=== PATIENT | male | born 1935 | race Caucasian/White ===

== ENCOUNTER → 2017-02-05 | Outpatient (REF) | payer MEDICARE | LOC: M LAB REF 16:30 | PROVIDERS: ATTEND Internal Medicine | DX: M10.072 Idiopathic gout, left ankle and foot (principal); N25.81 Secondary hyperparathyroidism of renal origin ==

== ENCOUNTER → 2017-06-25 | Outpatient (REF) | payer MEDICARE | LOC: M LAB REF 17:34 | PROVIDERS: ATTEND Internal Medicine | DX: N25.81 Secondary hyperparathyroidism of renal origin (principal) ==

== ENCOUNTER → 2017-07-23 | Outpatient (REF) | payer MEDICARE | LOC: M LAB REF 12:29 | PROVIDERS: ATTEND Internal Medicine | DX: N25.81 Secondary hyperparathyroidism of renal origin (principal) ==

== ENCOUNTER → 2017-11-02 | Outpatient (REF) | payer MEDICARE ==
[2017-11-02 18:30] LABS: PTH INTACT 54.1 PG/ML (14.0-72.0)
== END ==
LOC: M LAB REF 16:08
DX: N25.81 Secondary hyperparathyroidism of renal origin (principal)
CPT/HCPCS: 83970

== ENCOUNTER → 2018-03-04 | Outpatient (REF) | payer MEDICARE ==
[2018-03-04 18:11] LABS: PTH INTACT 45.8 PG/ML (18.5-88.0)
== END ==
LOC: M LAB REF 17:22
DX: N25.81 Secondary hyperparathyroidism of renal origin (principal)
CPT/HCPCS: 83970

== ENCOUNTER → 2019-09-29 | Outpatient (REF) | payer MEDICARE | LOC: M LAB REF 12:43 | PROVIDERS: ATTEND Internal Medicine | DX: N25.81 Secondary hyperparathyroidism of renal origin (principal) ==

== ENCOUNTER → 2020-04-05 | Outpatient (REF) | payer MEDICARE | LOC: M LAB REF 17:55 | PROVIDERS: ATTEND Internal Medicine | DX: N25.81 Secondary hyperparathyroidism of renal origin (principal) ==

== ENCOUNTER → 2020-10-05 | Outpatient (REF) | payer MEDICARE | LOC: M LAB REF 16:13 | PROVIDERS: ATTEND Internal Medicine | DX: N25.81 Secondary hyperparathyroidism of renal origin (principal) ==

== ENCOUNTER → 2021-04-15 | Outpatient (REF) | payer MEDICARE | LOC: M LAB REF 16:20 | PROVIDERS: ATTEND Internal Medicine | DX: N25.81 Secondary hyperparathyroidism of renal origin (principal) ==

== ENCOUNTER → 2021-10-04 | Outpatient (REF) | payer MEDICARE ==
[2021-10-04 17:43] LABS: URIC ACID 4.3 MG/DL (3.5-7.2)
[2021-10-04 17:56] LABS: PTH INTACT 32.9 PG/ML (18.5-88.0)
== END ==
LOC: M LAB REF 16:21
PROVIDERS: ATTEND Internal Medicine
DX: N18.4 Chronic kidney disease, stage 4 (severe) (principal)

== ENCOUNTER → 2021-10-19 | Outpatient (CLI) | payer MEDICARE ==
--- NOTE | 2021-10-19 13:08 | REP ---
INDICATION: CKD, STAGE 4 COMPARISON: None TECHNIQUE: Real time jacobs scale ultrasound examination using curved array transducer. FINDINGS: Right kidney measures 8.0 x 3.5 x 4.5 cm and demonstrates increased central sinus fat along with renovascular calcifications and few cysts including 1.8 cm complex upper pole cyst, and two 2.5 cm simple lower pole cysts. No hydronephrosis, nephrolithiasis or perinephric stranding. Left kidney measures 11.6 x 5.6 x 5.2 cm and demonstrates increased central sinus fat along with renovascular calcifications and few cysts including 2.5 cm upper pole cyst, 4.3 cm and 2.1 cm lower pole cysts. No hydronephrosis, nephrolithiasis, or perinephric stranding. The bladder is normal in appearance and bilateral ureteral jets are identified. IMPRESSION: 1. Asymmetric atrophic appearance to the right kidney along with bilateral simple and complex cysts. No hydronephrosis. <Electronically signed by Zhou Fuentes > 10/19/21 [id number]
== END ==
LOC: M RAD 11:27
PROVIDERS: ATTEND Internal Medicine
DX: N18.9 Chronic kidney disease, unspecified (principal)

== ENCOUNTER → 2022-01-11 | Outpatient (REF) | payer MEDICARE ==
[2022-01-11 12:44] LABS: URIC ACID 4.7 MG/DL (3.5-7.2)
[2022-01-11 12:57] LABS: PTH INTACT 24.3 PG/ML (18.5-88.0)
== END ==
LOC: M LAB REF 12:08
PROVIDERS: ATTEND Internal Medicine
DX: N18.4 Chronic kidney disease, stage 4 (severe) (principal)

== ENCOUNTER → 2022-03-07 | Outpatient (REF) | payer MEDICARE ==
[2022-03-07 10:02] LABS: INR 4.27; PROTHROMBIN TIME 41.2 SECONDS (12.7-14.5)
== END ==
LOC: M LAB REF 09:35
PROVIDERS: ATTEND Nurse Practitioner Adult Health
DX: Z79.01 Long term (current) use of anticoagulants (principal)

== ENCOUNTER → 2022-04-21 | Outpatient (REF) | payer MEDICARE ==
[2022-04-21 13:55] LABS: PHOSPHORUS LEVEL 3.4 MG/DL (2.5-4.9); URIC ACID 4.3 MG/DL (3.5-7.2)
[2022-04-21 14:02] LABS: PTH INTACT 21.8 PG/ML (18.5-88.0)
== END ==
LOC: M LAB REF 12:37
PROVIDERS: ATTEND Internal Medicine
DX: M10.9 Gout, unspecified (principal); I48.21 Permanent atrial fibrillation; N18.5 Chronic kidney disease, stage 5

== ENCOUNTER → 2022-05-17 | Outpatient (REF) | payer MEDICARE ==
[2022-05-17 19:53] LABS: HEPATITIS B CORE ANTIBODY IGM NEGATIVE (NEGATIVE); HEPATITIS B SURFACE ANTIBODY NEGATIVE (POSITIVE); HEPATITIS B SURFACE ANTIGEN NEGATIVE (NEGATIVE); HEPATITIS C VIRUS ABY INDEX 0.1 INDEX (<0.8)
== END ==
LOC: M LAB REF 16:40
PROVIDERS: ATTEND Internal Medicine Nephrology
DX: N18.6 End stage renal disease (principal)

== ENCOUNTER → 2022-06-04 | Outpatient (CLI) | payer MEDICARE | LOC: M LABSMTC 10:43 | PROVIDERS: ATTEND Anesthesiology | DX: Z20.828 Contact with and (suspected) exposure to other viral communicable diseases (principal); Z11.59 Encounter for screening for other viral diseases ==

== ENCOUNTER → 2022-06-08 | Outpatient (CLI) | payer MEDICARE ==
[~2022-06-08] MED LIST: LIDOCAINE 1% MDV 20ML VIAL As Ordered ONE; MIDAZOLAM INJ 2MG/2ML VIAL (J2250 PER 1MG) As Ordered ONE; NS 1,000 ML IV SCH; ceFAZolin 2 GM/D5W 50 ML IV BAG (J0690 PER 500MG) As Ordered ONE; ceFAZolin SOD 2 GM in IV 1 EA IV ONE; diphenhydrAMINE 50MG/ML VIAL (J1200) As Ordered ONE; fentaNYL 100 MCG/2 ML INJECTION As Ordered ONE
[2022-06-08 13:45] VITALS: BP 169/77
== END ==
LOC: M IRPRO 10:46
PROVIDERS: ATTEND Radiology Diagnostic Radiology
DX: N19 Unspecified kidney failure (principal)
CPT/HCPCS: 36558; 99152; 99153; C1750; C1769; C1894; J0690; J1644; J2250; J3010

== ENCOUNTER → 2022-08-24 | Outpatient (REF) | payer MEDICARE ==
[2022-08-24 14:37] LABS: URIC ACID 1.9 MG/DL (3.5-7.2)
[2022-08-24 15:22] LABS: PTH INTACT 112.9 PG/ML (18.5-88.0)
== END ==
LOC: M LAB REF 12:12
PROVIDERS: ATTEND Internal Medicine
DX: I48.21 Permanent atrial fibrillation (principal); N18.5 Chronic kidney disease, stage 5; M10.9 Gout, unspecified

== ENCOUNTER → 2022-09-18 | Outpatient (REF) | payer MEDICARE | LOC: M LAB REF 09:14 | PROVIDERS: ATTEND Surgery | DX: L72.0 Epidermal cyst (principal) ==

== ENCOUNTER → 2022-10-05 | Outpatient (CLI) | payer MEDICARE | LOC: M ONCR 08:53 | PROVIDERS: ATTEND General Practice | DX: C44.229 Squamous cell carcinoma of skin of left ear and external auricular canal (principal); I48.0 Paroxysmal atrial fibrillation; N18.6 End stage renal disease; Z87.891 Personal history of nicotine dependence; Z99.2 Dependence on renal dialysis ==

== ENCOUNTER → 2022-10-19 | Outpatient (CLI) | payer MEDICARE ==
[~2022-10-19] MED LIST changes: +ALLO100T PO; +ASPI81TA26 PO; +ATOR1TAB21 PO; +FLOM0.4C39 PO; +FURO40TA2 PO; -LIDOCAINE 1% MDV 20ML VIAL As Ordered ONE; +METO1TAB32 PO; -MIDAZOLAM INJ 2MG/2ML VIAL (J2250 PER 1MG) As Ordered ONE; -NS 1,000 ML IV SCH; +PANT40TA29 PO; +SPIR-10 PO; +WARF-18 PO; +WARF-23 PO; -ceFAZolin 2 GM/D5W 50 ML IV BAG (J0690 PER 500MG) As Ordered ONE; -ceFAZolin SOD 2 GM in IV 1 EA IV ONE; -diphenhydrAMINE 50MG/ML VIAL (J1200) As Ordered ONE; -fentaNYL 100 MCG/2 ML INJECTION As Ordered ONE
[2022-10-19 12:46] LABS: INR 2.34
== END ==
LOC: M WUC 10:00
PROVIDERS: ATTEND Internal Medicine
DX: Z01.810 Encounter for preprocedural cardiovascular examination (principal); C44.209 Unspecified malignant neoplasm of skin of left ear and external auricular canal; Z95.9 Presence of cardiac and vascular implant and graft, unspecified

== ENCOUNTER → 2022-10-24 | Outpatient (CLI) | payer MEDICARE | LOC: M LABSMTC 09:25 | PROVIDERS: ATTEND Anesthesiology | DX: Z01.818 Encounter for other preprocedural examination (principal) ==

== ENCOUNTER 2022-10-26 06:48 | Day surgery (SDC) | payer MEDICARE ==
[~2022-10-26] VITALS: Ht 172.7 cm; Wt 89.7 kg
[~2022-10-26 06:48] MED LIST changes: +ceFAZolin SOD 2 GM in IV 1 EA IV ONE
[2022-10-26] MEDS ORDERED: LR 1,000 ML IV SCH ×2 (07:15→11:55)
[2022-10-26] MEDS ORDERED: BACITRACIN OINTMENT 30GM TUBE As Ordered ONE (08:31)
[2022-10-26] MEDS ORDERED: LIDOCAINE 2% W/EPINEPHRINE 20ML VIAL **PRES FREE As Ordered ONE (08:31)
[2022-10-26] MEDS ORDERED: EPINEPHrine INJ 1 MG/ML 1ML AMP As Ordered ONE (08:31)
[2022-10-26] MEDS ORDERED: MIDAZOLAM INJ 2MG/2ML VIAL (J2250 PER 1MG) As Ordered ONE (08:43)
[2022-10-26] MEDS ORDERED: fentaNYL 100 MCG/2 ML INJECTION As Ordered ONE (08:43)
[2022-10-26] MEDS ORDERED: propofoL 200 MG/20 ML VIAL As Ordered ONE (08:43)
[2022-10-26] MEDS ORDERED: ONDANSETRON 4MG 2ML VIAL As Ordered ONE (08:43)
[2022-10-26] MEDS ORDERED: LIDOCAINE 2% INJ 100 MG/5 ML SYRINGE As Ordered ONE (08:43)
[2022-10-26] MEDS ORDERED: NS 1,000 ML IV SCH ×2 (08:50→08:55)
[2022-10-26 09:22] LABS: INR 1.1; PROTHROMBIN TIME 14.4 SECONDS (12.5-14.5)
[2022-10-26] MEDS ORDERED: POVIDONE-IODINE 5% OPHTH PREP SOL 30ML As Ordered ONE (09:38)
[2022-10-26] MEDS ORDERED: ePHEDrine SULFATE 25 MG/5 ML(5MG/ML) SYRINGE As Ordered ONE ×3 (09:55→11:48)
[2022-10-26] MEDS ORDERED: GLYCOPYRROLATE INJ 0.2 MG/ML 2 ML VIAL As Ordered ONE (09:55)
[2022-10-26] MEDS ORDERED: ACETAMINOPHEN 1000MG 100ML IV BAG As Ordered ONE (10:35)
[2022-10-26] MEDS ORDERED: GENTAMICIN SULF 80MG/2ML VIAL As Ordered ONE (10:56)
[2022-10-26] MEDS ORDERED: PHENYLephrine 500MCG 5ML (100MCG/ML) SYRINGE As Ordered ONE (11:45)
[2022-10-26] MEDS ORDERED: fentaNYL 100 MCG/2 ML INJECTION IV PRN (11:55)
[2022-10-26] MEDS ORDERED: MORPHINE 2 MG/ML 1ML VIAL IV PRN (11:55)
[2022-10-26] MEDS ORDERED: ONDANSETRON 4MG 2ML VIAL IV PRN (11:55)
[2022-10-26] MEDS ORDERED: oxyCODONE 5MG TAB PO PRN (11:55)
[2022-10-26 15:31] VITALS: BP 112/59
== END 2022-10-26 15:49 | disposition home or self-care (01) ==
LOC: M SDC 06:48
PROVIDERS: ATTEND Plastic Surgery Surgery of the Hand
DX: C44.229 Squamous cell carcinoma of skin of left ear and external auricular canal (principal); I48.91 Unspecified atrial fibrillation; Z79.01 Long term (current) use of anticoagulants; Z79.899 Other long term (current) drug therapy; I10 Essential (primary) hypertension; Z87.891 Personal history of nicotine dependence; I25.10 Atherosclerotic heart disease of native coronary artery without angina pectoris; I25.2 Old myocardial infarction; M10.9 Gout, unspecified; Z79.82 Long term (current) use of aspirin; N40.0 Benign prostatic hyperplasia without lower urinary tract symptoms
CPT/HCPCS: 11644; 15240; 36415; 84132; 85610; 88305; 88331; 88332; J0131; J0171; J0690; J1100; J1580; J2250; J2370; J2405; J3010

== ENCOUNTER 2023-01-17 09:11 | Inpatient (IN) | payer MEDICARE ==
[~2023-01-17] VITALS: Ht 172.7 cm; Wt 81.3 kg
[~2023-01-17 09:11] MED LIST changes: -ceFAZolin SOD 2 GM in IV 1 EA IV ONE
[2023-01-17 10:21] LABS: BASO % 0.2 % (0.0-1.0); HEMATOCRIT 39.2 % (42.0-52.0); HEMOGLOBIN 12.7 g/dl (13.5-17.5); LYMPH # 0.3 10^3/uL (1.5-5.0); LYMPH % 1.3 % (24.0-44.0); MEAN CORPUSCULAR HEMOGLOBIN 34.1 pg (27.0-33.0); MEAN CORPUSCULAR HGB CONC 32.4 g/dl (32.0-36.5); MEAN CORPUSCULAR VOLUME 105.4 fl (80.0-96.0); MONO # 0.8 10^3/uL (0.0-0.8); MONO % 3.4 % (2.0-8.0); NEUTROPHILS # 20.8 10^3/uL (1.5-8.5); NEUTROPHILS % 93.1 % (36.0-66.0); PLATELET COUNT, AUTOMATED 151 10^3/uL (150-450); RED BLOOD COUNT 3.72 10^6/uL (4.30-6.10); WHITE BLOOD COUNT 22.3 10^3/uL (4.0-10.0)
[2023-01-17 10:43] LABS: CK-MB VALUE MASS < 1.0 NG/ML (<3.6)
[2023-01-17 10:46] LABS: ALBUMIN 3.6 G/DL (3.2-5.2); ALKALINE PHOSPHATASE 98 U/L (46-116); ALT/SGPT 32 U/L (7.0-40); AST/SGOT 29 U/L (<34); BILIRUBIN,DIRECT 0.5 MG/DL (<0.4); BILIRUBIN,TOTAL 0.8 MG/DL (0.3-1.2); BLOOD UREA NITROGEN 36 MG/DL (9-23); CARBON DIOXIDE LEVEL 26 MMOL/L (20-31); CHLORIDE LEVEL 99 MMOL/L (98-107); CREATININE FOR GFR 5.15 MG/DL (0.70-1.30); GLOMERULAR FILTRATION RATE 11.3 (>35); GLUCOSE, FASTING 138 MG/DL (74-106); SODIUM LEVEL 138 MMOL/L (136-145)
[2023-01-17 10:47] LABS: THYROID STIMULATING HORMONE 0.719 uIU/ML (0.55-4.78)
[2023-01-17 10:49] LABS: CPK CREATINE PHOSPHOKINASE 105 U/L (46-171); MB/CK RELATIVE INDEX 0.95 (< OR =4)
[2023-01-17 10:50] LABS: RSV AMPLIFICATION NEGATIVE (NEGATIVE)
[2023-01-17] MEDS ORDERED: ACET-907 PO (11:10)
[2023-01-17] MEDS ORDERED: VANCOMYCIN HCL 1,750 MG in NS 250 ML IV ONE (11:50)
[2023-01-17] MEDS ORDERED: PIPERACILLIN/TAZOBACTAM SOD 3.375 GM in D5W MINI-BAG PLUS 50 ML IV ONE (11:50)
[2023-01-17] MEDS ORDERED: SODIUM CHLORIDE 0.9% 1000ML IV PRN (11:55)
[2023-01-17] MEDS ORDERED: HEPARIN 1,000UNITS/ML 10ML VIAL (FOR RADIOLOGY & DIALYSIS ONLY) IV PRN (11:55)
[2023-01-17] MEDS ORDERED: VANCOMYCIN HCL 1,000 MG, VIAL MATE ADAPTER 1 EACH in D5W 250 ML IV ONE (12:00)
[2023-01-17] MEDS ORDERED: VANCOMYCIN HCL 750 MG, VIAL MATE ADAPTER 1 EACH in D5W 250 ML IV ONE (12:00)
[2023-01-17 12:16] LABS: CK-MB VALUE MASS < 1.0 NG/ML (<3.6); CPK CREATINE PHOSPHOKINASE 98 U/L (46-171); MB/CK RELATIVE INDEX 1.02 (< OR =4)
[2023-01-17] MEDS ORDERED: NS 1,000 ML IV ONE ×2 (12:30→15:35)
[2023-01-17] MEDS ORDERED: HEPARIN SOD (PORCINE) 5000UNITS/ML 1ML VIAL/SYRINGE SC SCH (12:30)
[2023-01-17] MEDS ORDERED: ISOVUE-370 76% 100ML VIAL As Ordered ONE ×2 (12:58→13:13)
[2023-01-17] MEDS ORDERED: VANCOMYCIN HCL 1,000 MG, VIAL MATE ADAPTER 1 EACH in NS 250 ML IV SCH (13:10)
[2023-01-17 13:48] LABS: INR 2.53; PROTHROMBIN TIME 27.7 SECONDS (12.5-14.5)
[2023-01-17 13:49] LABS: CK-MB VALUE MASS < 1.0 NG/ML (<3.6)
[2023-01-17 13:50] LABS: CPK CREATINE PHOSPHOKINASE 95 U/L (46-171); MB/CK RELATIVE INDEX 1.05 (< OR =4)
[2023-01-17] MEDS ORDERED: MUPI2OI TOP (15:22)
[2023-01-17] MEDS ORDERED: FLUO1CRE2 TOP (15:22)
[2023-01-17] MEDS ORDERED: TEMO0.0517 TOP (15:22)
[2023-01-17] MEDS ORDERED: HOME MED LIST COMPLETE! XX SCH (15:25)
[2023-01-17] MEDS ORDERED: CLOBETASOL PROP 0.05% OINT 30 GM TOP PRN (15:40)
[2023-01-17] MEDS ORDERED: VANCOMYCIN HCL 1,000 MG, VIAL MATE ADAPTER 1 EACH in D5W 250 ML IV SCH (16:00)
[2023-01-17] MEDS ORDERED: CEFEPIME HCL 1 GM in D5W MINI-BAG PLUS 50 ML IV SCH (18:00)
[2023-01-17] MEDS ORDERED: CEFEPIME HCL 2 GM in D5W MINI-BAG PLUS 50 ML IV SCH (18:00)
[2023-01-17 18:50] VITALS: BP 143/68
[2023-01-17] MEDS ORDERED: VANCOMYCIN HCL 500 MG in D5W MINI-BAG PLUS 100 ML IV ONE (20:00)
[2023-01-17 20:19] VITALS: BP 152/70
[2023-01-17] MEDS: ACETAMINOPHEN TAB 650MG DOSE (2X325MG) PO SCH (20:54)
[2023-01-17] MEDS: allopurinoL 100 MG TAB PO SCH (20:54)
[2023-01-17 23:11] VITALS: BP 110/56
[2023-01-18 04:30] VITALS: BP 115/60
[2023-01-18 06:57] LABS: HEMATOCRIT 34.7 % (42.0-52.0); HEMOGLOBIN 11.7 g/dl (13.5-17.5); MEAN CORPUSCULAR HEMOGLOBIN 34.6 pg (27.0-33.0); MEAN CORPUSCULAR HGB CONC 33.7 g/dl (32.0-36.5); MEAN CORPUSCULAR VOLUME 102.7 fl (80.0-96.0); PLATELET COUNT, AUTOMATED 129 10^3/uL (150-450); RED BLOOD COUNT 3.38 10^6/uL (4.30-6.10); WHITE BLOOD COUNT 23.8 10^3/uL (4.0-10.0)
[2023-01-18 07:07] LABS: INR 2.87; PROTHROMBIN TIME 30.5 SECONDS (12.5-14.5)
[2023-01-18 07:22] LABS: CREATININE FOR GFR 3.84 MG/DL (0.70-1.30); GLOMERULAR FILTRATION RATE 15.9 (>35); MAGNESIUM LEVEL 1.6 MG/DL (1.8-2.4); PHOSPHORUS LEVEL 3.4 MG/DL (2.4-5.1); POTASSIUM SERUM 4.5 MMOL/L (3.5-5.1)
[2023-01-18 07:49] VITALS: BP 148/67
[2023-01-18 07:57] LABS: ATYPICAL LYMPH 2 % (0-5); BASOPHILS 1 % (0-1); LYMPHOCYTES 3 % (16-44); MONOCYTES 3 % (0-5); NEUTROPHILS 79 % (28-66)
[2023-01-18 07:59] LABS: DOHLE BODIES 1+
[2023-01-18 08:01] LABS: OVALOCYTES 1+; PLATELET ESTIMATE NORMAL (NORMAL)
[2023-01-18] MEDS: allopurinoL 100 MG TAB PO SCH ×2 (09:17→21:32)
[2023-01-18] MEDS: ASPIRIN 81MG ENTERIC TABLET PO SCH (09:17)
[2023-01-18] MEDS: ACETAMINOPHEN TAB 650MG DOSE (2X325MG) PO SCH ×2 (09:17→21:32)
[2023-01-18] MEDS: ATORVASTATIN 20 MG TAB PO SCH (09:17)
[2023-01-18] MEDS: PANTOPRAZOLE 40MG TAB (PROTONIX) PO SCH (09:17)
[2023-01-18] MEDS: TAMSULOSIN 0.4 MG CAP PO SCH (09:17)
[2023-01-18] MEDS: MAG SULF 1GM/100ML (MAG RUN) 1 GM in IV 1 EA IV SCH ×3 (11:23→14:04)
[2023-01-18 12:12] VITALS: BP 150/67
[2023-01-18] MEDS: THIAMINE INJection 500 MG in NS 100 ML IV SCH ×2 (16:02→22:59)
[2023-01-18 16:05] VITALS: BP 164/68
[2023-01-18] MEDS ORDERED: WARFARIN SOD 2.5MG TAB PO SCH (17:00)
[2023-01-18] MEDS: ceFAZolin SOD 1 GM in D5W MINI-BAG PLUS 50 ML IV SCH (17:32)
[2023-01-18] MEDS ORDERED: NS 1,000 ML IV ONE (18:40)
[2023-01-18 20:37] VITALS: BP 137/59
[2023-01-19 00:25] VITALS: BP 117/56
[2023-01-19 04:32] VITALS: BP 127/59
[2023-01-19 04:59] LABS: BASO % 0.3 % (0.0-1.0); EOS # 0.1 10^3/uL (0.0-0.5); EOS % 0.4 % (0.0-3.0); HEMATOCRIT 31.9 % (42.0-52.0); HEMOGLOBIN 10.8 g/dl (13.5-17.5); LYMPH # 0.5 10^3/uL (1.5-5.0); LYMPH % 3.4 % (24.0-44.0); MEAN CORPUSCULAR HEMOGLOBIN 34.4 pg (27.0-33.0); MEAN CORPUSCULAR HGB CONC 33.9 g/dl (32.0-36.5); MEAN CORPUSCULAR VOLUME 101.6 fl (80.0-96.0); MONO % 6.5 % (2.0-8.0); NEUTROPHILS # 13.8 10^3/uL (1.5-8.5); NEUTROPHILS % 86.9 % (36.0-66.0); PLATELET COUNT, AUTOMATED 135 10^3/uL (150-450); RED BLOOD COUNT 3.14 10^6/uL (4.30-6.10); WHITE BLOOD COUNT 15.9 10^3/uL (4.0-10.0)
[2023-01-19 05:16] LABS: INR 2.28; PROTHROMBIN TIME 25.5 SECONDS (12.5-14.5)
[2023-01-19 05:27] LABS: ALBUMIN 2.4 G/DL (3.2-5.2); BILIRUBIN,TOTAL 0.7 MG/DL (0.3-1.2); CALCIUM LEVEL 9.2 MG/DL (8.3-10.6); CREATININE FOR GFR 4.67 MG/DL (0.70-1.30); GLOMERULAR FILTRATION RATE 12.7 (>35); MAGNESIUM LEVEL 2.5 MG/DL (1.8-2.4); POTASSIUM SERUM 4.2 MMOL/L (3.5-5.1); TOTAL PROTEIN 5.5 G/DL (5.7-8.2)
[2023-01-19] MEDS ORDERED: SODIUM CHLORIDE 0.9% 1000ML IV PRN (06:00)
[2023-01-19] MEDS ORDERED: HEPARIN 1,000UNITS/ML 10ML VIAL (FOR RADIOLOGY & DIALYSIS ONLY) IV PRN (06:00)
[2023-01-19] MEDS: PANTOPRAZOLE 40MG TAB (PROTONIX) PO SCH (06:29)
[2023-01-19] MEDS: TAMSULOSIN 0.4 MG CAP PO SCH (06:30)
[2023-01-19] MEDS: THIAMINE INJection 500 MG in NS 100 ML IV SCH (06:30)
[2023-01-19] MEDS: ATORVASTATIN 20 MG TAB PO SCH (06:30)
[2023-01-19 08:47] VITALS: BP 116/57
[2023-01-19 09:21] LABS: C REACTIVE PROTEIN QUANTITATIV 41.2 MG/DL (<1.0)
[2023-01-19] MEDS: allopurinoL 100 MG TAB PO SCH ×2 (09:38→20:40)
[2023-01-19] MEDS: ACETAMINOPHEN TAB 650MG DOSE (2X325MG) PO SCH ×2 (09:39→20:40)
[2023-01-19] MEDS: ASPIRIN 81MG ENTERIC TABLET PO SCH (09:39)
[2023-01-19] MEDS: METOPROLOL TART 12.5 MG PER 1/2 TAB PO SCH ×2 (11:25→20:40)
[2023-01-19 11:33] VITALS: BP 149/66
[2023-01-19 12:22] LABS: FOLATE 2.1 NG/ML (>5.4)
[2023-01-19 17:16] VITALS: BP 134/62
[2023-01-19] MEDS: ceFAZolin SOD 1 GM in D5W MINI-BAG PLUS 50 ML IV SCH (17:28)
[2023-01-19] MEDS: WARFARIN SOD 5MG TAB PO SCH (17:28)
[2023-01-19 20:29] VITALS: BP 147/69
[2023-01-20] VITALS (7 sets, daily range): BP systolic 117–150; BP diastolic 61–72
[2023-01-20 06:11] LABS: BASO % 0.2 % (0.0-1.0); EOS # 0.1 10^3/uL (0.0-0.5); EOS % 0.6 % (0.0-3.0); HEMATOCRIT 33.7 % (42.0-52.0); HEMOGLOBIN 11.5 g/dl (13.5-17.5); LYMPH # 0.6 10^3/uL (1.5-5.0); LYMPH % 3.5 % (24.0-44.0); MEAN CORPUSCULAR HEMOGLOBIN 34.4 pg (27.0-33.0); MEAN CORPUSCULAR HGB CONC 34.1 g/dl (32.0-36.5); MEAN CORPUSCULAR VOLUME 100.9 fl (80.0-96.0); NEUTROPHILS # 13.9 10^3/uL (1.5-8.5); NEUTROPHILS % 84.8 % (36.0-66.0); PLATELET COUNT, AUTOMATED 157 10^3/uL (150-450); RED BLOOD COUNT 3.34 10^6/uL (4.30-6.10); WHITE BLOOD COUNT 16.3 10^3/uL (4.0-10.0)
[2023-01-20 06:21] LABS: INR 2.2; PROTHROMBIN TIME 24.8 SECONDS (12.5-14.5)
[2023-01-20 06:40] LABS: ALBUMIN 2.3 G/DL (3.2-5.2); BILIRUBIN,TOTAL 0.7 MG/DL (0.3-1.2); CALCIUM LEVEL 8.9 MG/DL (8.3-10.6); CREATININE FOR GFR 3.31 MG/DL (0.70-1.30); GLOMERULAR FILTRATION RATE 18.9 (>35); MAGNESIUM LEVEL 2.2 MG/DL (1.8-2.4); POTASSIUM SERUM 4.1 MMOL/L (3.5-5.1); TOTAL PROTEIN 5.7 G/DL (5.7-8.2)
[2023-01-20 07:00] LABS: MONO # 1.6 10^3/uL (0.0-0.8)
[2023-01-20 07:09] LABS: ERYTHROCYTE SEDIMENTATION RATE 113 mm/hr (0-20)
[2023-01-20] MEDS: ASPIRIN 81MG ENTERIC TABLET PO SCH (08:34)
[2023-01-20] MEDS: METOPROLOL TART 12.5 MG PER 1/2 TAB PO SCH (08:34)
[2023-01-20] MEDS: PANTOPRAZOLE 40MG TAB (PROTONIX) PO SCH (08:34)
[2023-01-20] MEDS: ATORVASTATIN 20 MG TAB PO SCH (08:34)
[2023-01-20] MEDS: allopurinoL 100 MG TAB PO SCH ×2 (08:34→20:06)
[2023-01-20] MEDS: TAMSULOSIN 0.4 MG CAP PO SCH (08:34)
[2023-01-20] MEDS: ACETAMINOPHEN TAB 650MG DOSE (2X325MG) PO SCH ×2 (08:35→20:06)
[2023-01-20] MEDS: CYANOCOBALAMIN 250 MCG TABLET PO SCH (10:13)
[2023-01-20] MEDS: FOLIC ACID 1MG TAB PO SCH (10:13)
[2023-01-20] MEDS: ceFAZolin SOD 1 GM in D5W MINI-BAG PLUS 50 ML IV SCH (18:25)
[2023-01-20] MEDS: WARFARIN SOD 5MG TAB PO SCH (18:25)
[2023-01-21] VITALS (7 sets, daily range): BP systolic 135–160; BP diastolic 64–72
[2023-01-21 04:44] LABS: BASO # 0.1 10^3/uL (0.0-0.2); BASO % 0.3 % (0.0-1.0); EOS # 0.2 10^3/uL (0.0-0.5); HEMATOCRIT 32.5 % (42.0-52.0); HEMOGLOBIN 11.1 g/dl (13.5-17.5); LYMPH # 0.7 10^3/uL (1.5-5.0); LYMPH % 4.4 % (24.0-44.0); MEAN CORPUSCULAR HEMOGLOBIN 33.9 pg (27.0-33.0); MEAN CORPUSCULAR HGB CONC 34.2 g/dl (32.0-36.5); MEAN CORPUSCULAR VOLUME 99.4 fl (80.0-96.0); MONO % 9.7 % (2.0-8.0); NEUTROPHILS # 13.4 10^3/uL (1.5-8.5); NEUTROPHILS % 83.1 % (36.0-66.0); PLATELET COUNT, AUTOMATED 173 10^3/uL (150-450); RED BLOOD COUNT 3.27 10^6/uL (4.30-6.10); WHITE BLOOD COUNT 16.2 10^3/uL (4.0-10.0)
[2023-01-21 04:54] LABS: INR 3.18; PROTHROMBIN TIME 33.1 SECONDS (12.5-14.5)
[2023-01-21 05:05] LABS: MONO # 1.6 10^3/uL (0.0-0.8)
[2023-01-21 05:10] LABS: ALBUMIN 2.2 G/DL (3.2-5.2); BILIRUBIN,TOTAL 0.6 MG/DL (0.3-1.2); CALCIUM LEVEL 9.1 MG/DL (8.3-10.6); CREATININE FOR GFR 4.87 MG/DL (0.70-1.30); GLOMERULAR FILTRATION RATE 12.1 (>35); MAGNESIUM LEVEL 2.5 MG/DL (1.8-2.4); POTASSIUM SERUM 3.7 MMOL/L (3.5-5.1); TOTAL PROTEIN 5.8 G/DL (5.7-8.2)
[2023-01-21] MEDS: ACETAMINOPHEN TAB 650MG DOSE (2X325MG) PO SCH ×2 (08:31→20:26)
[2023-01-21] MEDS: ATORVASTATIN 20 MG TAB PO SCH (08:31)
[2023-01-21] MEDS: FOLIC ACID 1MG TAB PO SCH (08:32)
[2023-01-21] MEDS: allopurinoL 100 MG TAB PO SCH ×2 (08:32→20:26)
[2023-01-21] MEDS: CYANOCOBALAMIN 250 MCG TABLET PO SCH (08:32)
[2023-01-21] MEDS: ASPIRIN 81MG ENTERIC TABLET PO SCH (08:32)
[2023-01-21] MEDS: TAMSULOSIN 0.4 MG CAP PO SCH (08:32)
[2023-01-21] MEDS: PANTOPRAZOLE 40MG TAB (PROTONIX) PO SCH (08:32)
[2023-01-21 09:27] LABS: PERCENT SATURATION 9.8 % (19.7-50.0)
[2023-01-21 09:29] LABS: FOLATE 5.04 NG/ML (>5.4)
[2023-01-21 10:00] LABS: FERRITIN 3240.7 NG/ML (10.5-307.3)
[2023-01-21] MEDS: ceFAZolin SOD 1 GM in D5W MINI-BAG PLUS 50 ML IV SCH (17:15)
[2023-01-22] VITALS (8 sets, daily range): BP systolic 123–178; BP diastolic 54–76
[2023-01-22] MEDS ORDERED: HEPARIN 1,000UNITS/ML 10ML VIAL (FOR RADIOLOGY & DIALYSIS ONLY) XX SCH (05:35)
[2023-01-22] MEDS ORDERED: HEPARIN 1,000UNITS/ML 10ML VIAL (FOR RADIOLOGY & DIALYSIS ONLY) IV PRN (05:35)
[2023-01-22] MEDS ORDERED: SODIUM CHLORIDE 0.9% 1000ML IV PRN (05:35)
[2023-01-22 06:04] LABS: BASO # 0.1 10^3/uL (0.0-0.2); BASO % 0.4 % (0.0-1.0); EOS # 0.3 10^3/uL (0.0-0.5); EOS % 1.6 % (0.0-3.0); HEMATOCRIT 30.1 % (42.0-52.0); HEMOGLOBIN 10.4 g/dl (13.5-17.5); LYMPH # 0.8 10^3/uL (1.5-5.0); LYMPH % 4.7 % (24.0-44.0); MEAN CORPUSCULAR HEMOGLOBIN 33.7 pg (27.0-33.0); MEAN CORPUSCULAR HGB CONC 34.6 g/dl (32.0-36.5); MEAN CORPUSCULAR VOLUME 97.4 fl (80.0-96.0); MONO # 1.4 10^3/uL (0.0-0.8); MONO % 8.6 % (2.0-8.0); NEUTROPHILS # 13.4 10^3/uL (1.5-8.5); NEUTROPHILS % 81.8 % (36.0-66.0); PLATELET COUNT, AUTOMATED 226 10^3/uL (150-450); RED BLOOD COUNT 3.09 10^6/uL (4.30-6.10); WHITE BLOOD COUNT 16.4 10^3/uL (4.0-10.0)
[2023-01-22 06:19] LABS: INR 4.84; PROTHROMBIN TIME 45.9 SECONDS (12.5-14.5)
[2023-01-22] MEDS: ASPIRIN 81MG ENTERIC TABLET PO SCH (06:27)
[2023-01-22] MEDS: ACETAMINOPHEN TAB 650MG DOSE (2X325MG) PO SCH ×2 (06:28→20:33)
[2023-01-22] MEDS: allopurinoL 100 MG TAB PO SCH ×2 (06:28→20:33)
[2023-01-22] MEDS: FOLIC ACID 1MG TAB PO SCH (06:28)
[2023-01-22 06:33] LABS: ALBUMIN 2.1 G/DL (3.2-5.2); ALKALINE PHOSPHATASE 182 U/L (46-116); ALT/SGPT 14 U/L (7.0-40); AST/SGOT 67 U/L (<34); BILIRUBIN,TOTAL 0.6 MG/DL (0.3-1.2); BLOOD UREA NITROGEN 98 MG/DL (9-23); CALCIUM LEVEL 9.2 MG/DL (8.3-10.6); CARBON DIOXIDE LEVEL 24 MMOL/L (20-31); CHLORIDE LEVEL 94 MMOL/L (98-107); CREATININE FOR GFR 6.48 MG/DL (0.70-1.30); GLOMERULAR FILTRATION RATE 8.7 (>35); GLUCOSE, FASTING 99 MG/DL (74-106); MAGNESIUM LEVEL 2.7 MG/DL (1.8-2.4); POTASSIUM SERUM 4.4 MMOL/L (3.5-5.1); SODIUM LEVEL 133 MMOL/L (136-145); TOTAL PROTEIN 5.8 G/DL (5.7-8.2)
[2023-01-22] MEDS: ATORVASTATIN 20 MG TAB PO SCH (09:17)
[2023-01-22] MEDS: PANTOPRAZOLE 40MG TAB (PROTONIX) PO SCH (09:18)
[2023-01-22] MEDS: TAMSULOSIN 0.4 MG CAP PO SCH (09:18)
[2023-01-22] MEDS ORDERED: MIRALAX *UNIT DOSE* 17GM PACKET PO PRN (11:20)
[2023-01-22] MEDS ORDERED: BISACODYL 10MG SUPP PR ONE (11:20)
[2023-01-22] MEDS: CYANOCOBALAMIN 250 MCG TABLET PO SCH (11:34)
[2023-01-22] MEDS: ceFAZolin SOD 1 GM in D5W MINI-BAG PLUS 50 ML IV SCH (17:34)
[2023-01-22] MEDS: amLODIPine 5 MG TAB PO SCH (17:47)
[2023-01-22 19:31] LABS: HEPATITIS B CORE ANTIBODY IGM NEGATIVE (NEGATIVE); HEPATITIS B SURFACE ANTIGEN NEGATIVE (NEGATIVE); HEPATITIS C VIRUS ABY INDEX 0.1 INDEX (<0.8)
[2023-01-23] VITALS (11 sets, daily range): BP systolic 131–156; BP diastolic 60–70
[2023-01-23 05:40] LABS: BASO # 0.1 10^3/uL (0.0-0.2); BASO % 0.4 % (0.0-1.0); EOS # 0.2 10^3/uL (0.0-0.5); HEMATOCRIT 32.3 % (42.0-52.0); HEMOGLOBIN 10.9 g/dl (13.5-17.5); LYMPH % 6.1 % (24.0-44.0); MEAN CORPUSCULAR HEMOGLOBIN 33.6 pg (27.0-33.0); MEAN CORPUSCULAR HGB CONC 33.7 g/dl (32.0-36.5); MEAN CORPUSCULAR VOLUME 99.7 fl (80.0-96.0); MONO # 1.4 10^3/uL (0.0-0.8); MONO % 8.4 % (2.0-8.0); NEUTROPHILS # 13.4 10^3/uL (1.5-8.5); NEUTROPHILS % 79.6 % (36.0-66.0); PLATELET COUNT, AUTOMATED 297 10^3/uL (150-450); RED BLOOD COUNT 3.24 10^6/uL (4.30-6.10); WHITE BLOOD COUNT 16.8 10^3/uL (4.0-10.0)
[2023-01-23 05:57] LABS: INR 4.58
[2023-01-23 06:04] LABS: BILIRUBIN,TOTAL 0.8 MG/DL (0.3-1.2); CALCIUM LEVEL 9.7 MG/DL (8.3-10.6); CREATININE FOR GFR 4.03 MG/DL (0.70-1.30); MAGNESIUM LEVEL 2.4 MG/DL (1.8-2.4); POTASSIUM SERUM 4.5 MMOL/L (3.5-5.1); TOTAL PROTEIN 5.9 G/DL (5.7-8.2)
[2023-01-23] MEDS ORDERED: ELIQ2.5T PO (09:47)
[2023-01-23] MEDS: ACETAMINOPHEN TAB 650MG DOSE (2X325MG) PO SCH ×2 (09:58→21:11)
[2023-01-23] MEDS: ASPIRIN 81MG ENTERIC TABLET PO SCH (09:58)
[2023-01-23] MEDS: allopurinoL 100 MG TAB PO SCH ×2 (09:59→21:11)
[2023-01-23] MEDS: TAMSULOSIN 0.4 MG CAP PO SCH (09:59)
[2023-01-23] MEDS: CYANOCOBALAMIN 250 MCG TABLET PO SCH (09:59)
[2023-01-23] MEDS: ATORVASTATIN 20 MG TAB PO SCH (09:59)
[2023-01-23] MEDS: FOLIC ACID 1MG TAB PO SCH (09:59)
[2023-01-23] MEDS: amLODIPine 5 MG TAB PO SCH (09:59)
[2023-01-23] MEDS: PANTOPRAZOLE 40MG TAB (PROTONIX) PO SCH (09:59)
[2023-01-23] MEDS ORDERED: PHYTONADIONE 1MG/0.5ML SYRINGE SQ ONE (11:00)
[2023-01-23 17:39] LABS: PROTHROMBIN TIME 51.4 SECONDS (12.5-14.5)
[2023-01-23 17:57] LABS: INR 5.59
[2023-01-23] MEDS: ceFAZolin SOD 1 GM in D5W MINI-BAG PLUS 50 ML IV SCH (18:19)
[2023-01-24] VITALS (9 sets, daily range): BP systolic 128–166; BP diastolic 48–69
[2023-01-24 06:01] LABS: BASO # 0.1 10^3/uL (0.0-0.2); BASO % 0.4 % (0.0-1.0); EOS # 0.2 10^3/uL (0.0-0.5); EOS % 1.1 % (0.0-3.0); HEMATOCRIT 30.7 % (42.0-52.0); HEMOGLOBIN 10.5 g/dl (13.5-17.5); LYMPH # 0.9 10^3/uL (1.5-5.0); MEAN CORPUSCULAR HGB CONC 34.2 g/dl (32.0-36.5); MEAN CORPUSCULAR VOLUME 99.4 fl (80.0-96.0); MONO # 1.2 10^3/uL (0.0-0.8); MONO % 6.7 % (2.0-8.0); NEUTROPHILS # 14.9 10^3/uL (1.5-8.5); NEUTROPHILS % 83.5 % (36.0-66.0); PLATELET COUNT, AUTOMATED 365 10^3/uL (150-450); RED BLOOD COUNT 3.09 10^6/uL (4.30-6.10); WHITE BLOOD COUNT 17.8 10^3/uL (4.0-10.0)
[2023-01-24] MEDS: ATORVASTATIN 20 MG TAB PO SCH (06:11)
[2023-01-24] MEDS: ASPIRIN 81MG ENTERIC TABLET PO SCH (06:11)
[2023-01-24] MEDS: TAMSULOSIN 0.4 MG CAP PO SCH (06:11)
[2023-01-24] MEDS: CYANOCOBALAMIN 250 MCG TABLET PO SCH (06:11)
[2023-01-24] MEDS: FOLIC ACID 1MG TAB PO SCH (06:11)
[2023-01-24] MEDS: allopurinoL 100 MG TAB PO SCH ×2 (06:11→20:24)
[2023-01-24] MEDS: PANTOPRAZOLE 40MG TAB (PROTONIX) PO SCH (06:11)
[2023-01-24] MEDS: ACETAMINOPHEN TAB 650MG DOSE (2X325MG) PO SCH ×2 (06:12→20:24)
[2023-01-24 06:13] LABS: INR 3.41; PROTHROMBIN TIME 34.9 SECONDS (12.5-14.5)
[2023-01-24 06:35] LABS: ALBUMIN 2.2 G/DL (3.2-5.2); BILIRUBIN,TOTAL 0.7 MG/DL (0.3-1.2); CALCIUM LEVEL 9.7 MG/DL (8.3-10.6); CREATININE FOR GFR 5.81 MG/DL (0.70-1.30); GLOMERULAR FILTRATION RATE 9.9 (>35); TOTAL PROTEIN 6.1 G/DL (5.7-8.2)
[2023-01-24] MEDS ORDERED: HEPARIN 1,000UNITS/ML 10ML VIAL (FOR RADIOLOGY & DIALYSIS ONLY) XX SCH (07:30)
[2023-01-24] MEDS ORDERED: SODIUM CHLORIDE 0.9% 1000ML IV PRN (07:30)
[2023-01-24] MEDS ORDERED: HEPARIN 1,000UNITS/ML 10ML VIAL (FOR RADIOLOGY & DIALYSIS ONLY) IV PRN (07:30)
[2023-01-24] MEDS: amLODIPine 5 MG TAB PO SCH (09:51)
[2023-01-24] MEDS ORDERED: SODIUM CHLORIDE NASAL 0.65% SPRAY BTL (OCEAN) PRN (10:15)
[2023-01-24 12:47] LABS: INR 2.69
[2023-01-24] MEDS: ceFAZolin SOD 1 GM in D5W MINI-BAG PLUS 50 ML IV SCH (17:48)
[2023-01-25 03:49] VITALS: BP 153/91
[2023-01-25 04:45] LABS: BASO # 0.1 10^3/uL (0.0-0.2); BASO % 0.4 % (0.0-1.0); EOS # 0.2 10^3/uL (0.0-0.5); EOS % 0.8 % (0.0-3.0); HEMATOCRIT 31.8 % (42.0-52.0); HEMOGLOBIN 10.8 g/dl (13.5-17.5); MEAN CORPUSCULAR HEMOGLOBIN 33.8 pg (27.0-33.0); MEAN CORPUSCULAR VOLUME 99.4 fl (80.0-96.0); MONO # 1.3 10^3/uL (0.0-0.8); MONO % 6.4 % (2.0-8.0); NEUTROPHILS # 16.2 10^3/uL (1.5-8.5); NEUTROPHILS % 83.6 % (36.0-66.0); PLATELET COUNT, AUTOMATED 425 10^3/uL (150-450); WHITE BLOOD COUNT 19.4 10^3/uL (4.0-10.0)
[2023-01-25 05:08] LABS: ALBUMIN 2.3 G/DL (3.2-5.2); BILIRUBIN,TOTAL 1.1 MG/DL (0.3-1.2); CALCIUM LEVEL 9.7 MG/DL (8.3-10.6); CREATININE FOR GFR 3.88 MG/DL (0.70-1.30); GLOMERULAR FILTRATION RATE 15.7 (>35); POTASSIUM SERUM 4.6 MMOL/L (3.5-5.1); TOTAL PROTEIN 6.5 G/DL (5.7-8.2)
[2023-01-25 07:20] LABS: INR 2.09; PROTHROMBIN TIME 23.8 SECONDS (12.5-14.5)
[2023-01-25 08:00] VITALS: BP 159/72
[2023-01-25] MEDS: amLODIPine 5 MG TAB PO SCH (08:13)
[2023-01-25] MEDS: ASPIRIN 81MG ENTERIC TABLET PO SCH (08:13)
[2023-01-25] MEDS: ATORVASTATIN 20 MG TAB PO SCH (08:14)
[2023-01-25] MEDS: PANTOPRAZOLE 40MG TAB (PROTONIX) PO SCH (08:14)
[2023-01-25] MEDS: FOLIC ACID 1MG TAB PO SCH (08:14)
[2023-01-25] MEDS: allopurinoL 100 MG TAB PO SCH ×2 (08:15→20:29)
[2023-01-25] MEDS: TAMSULOSIN 0.4 MG CAP PO SCH (08:15)
[2023-01-25] MEDS: CYANOCOBALAMIN 250 MCG TABLET PO SCH (08:15)
[2023-01-25] MEDS: ACETAMINOPHEN TAB 650MG DOSE (2X325MG) PO SCH ×2 (08:16→20:29)
[2023-01-25] MEDS ORDERED: LIDOCAINE 1% MDV 20ML VIAL As Ordered ONE (15:41)
[2023-01-25 16:56] VITALS: BP 163/74
[2023-01-25] MEDS: ceFAZolin SOD 1 GM in D5W MINI-BAG PLUS 50 ML IV SCH (17:42)
[2023-01-25 19:15] LABS: CRYSTALS, BODY FLUID NONE SEEN (NONE SEEN); SOURCE, BODY FLUID CRYSTALS LT SHOULDER
[2023-01-25 19:18] LABS: CRYSTALS, BODY FLUID NONE SEEN (NONE SEEN); SOURCE, BODY FLUID CRYSTALS RT SHOULDER
[2023-01-25 19:55] LABS: SOURCE, BODY FLUID RT SHOULDER; SYNOVIAL FLUID COLOR RED (COLORLESS)
[2023-01-25 19:57] LABS: SOURCE, BODY FLUID GLUCOSE RT SHOULDER; SOURCE, BODY FLUID URIC ACID RT SHOULDER
[2023-01-25 19:58] LABS: SOURCE, BODY FLUID GLUCOSE LT SHOULDER; SOURCE, BODY FLUID URIC ACID LT SHOULDER
[2023-01-25 20:00] VITALS: BP 126/59
[2023-01-25 21:17] LABS: SOURCE, BODY FLUID LT SHOULDER; SYNOVIAL FLUID COLOR RED (COLORLESS)
[2023-01-25 23:50] LABS: BF MONOCYTES/MACROPHAGES 4 %; LYMPHOCYTES, BODY FLUID 6 %
[2023-01-26 04:00] VITALS: BP 145/71
[2023-01-26 04:51] LABS: BASO # 0.1 10^3/uL (0.0-0.2); BASO % 0.5 % (0.0-1.0); EOS # 0.1 10^3/uL (0.0-0.5); EOS % 0.4 % (0.0-3.0); HEMATOCRIT 30.5 % (42.0-52.0); HEMOGLOBIN 10.6 g/dl (13.5-17.5); LYMPH % 4.3 % (24.0-44.0); MEAN CORPUSCULAR HEMOGLOBIN 34.2 pg (27.0-33.0); MEAN CORPUSCULAR HGB CONC 34.8 g/dl (32.0-36.5); MEAN CORPUSCULAR VOLUME 98.4 fl (80.0-96.0); MONO # 1.3 10^3/uL (0.0-0.8); MONO % 5.9 % (2.0-8.0); NEUTROPHILS # 19.6 10^3/uL (1.5-8.5); NEUTROPHILS % 86.7 % (36.0-66.0); PLATELET COUNT, AUTOMATED 495 10^3/uL (150-450); WHITE BLOOD COUNT 22.7 10^3/uL (4.0-10.0)
[2023-01-26 05:24] LABS: ALBUMIN 2.2 G/DL (3.2-5.2); BILIRUBIN,TOTAL 0.9 MG/DL (0.3-1.2); CREATININE FOR GFR 5.73 MG/DL (0.70-1.30); POTASSIUM SERUM 4.9 MMOL/L (3.5-5.1); TOTAL PROTEIN 6.7 G/DL (5.7-8.2)
[2023-01-26] MEDS: allopurinoL 100 MG TAB PO SCH ×2 (06:02→20:33)
[2023-01-26] MEDS: ASPIRIN 81MG ENTERIC TABLET PO SCH (06:03)
[2023-01-26] MEDS: FOLIC ACID 1MG TAB PO SCH (06:03)
[2023-01-26] MEDS: ACETAMINOPHEN TAB 650MG DOSE (2X325MG) PO SCH ×2 (06:03→20:32)
[2023-01-26] MEDS ORDERED: HEPARIN 1,000UNITS/ML 10ML VIAL (FOR RADIOLOGY & DIALYSIS ONLY) IV PRN (07:10)
[2023-01-26] MEDS ORDERED: HEPARIN 1,000UNITS/ML 10ML VIAL (FOR RADIOLOGY & DIALYSIS ONLY) XX SCH (07:10)
[2023-01-26] MEDS ORDERED: SODIUM CHLORIDE 0.9% 1000ML IV PRN (07:10)
[2023-01-26 07:50] VITALS: BP 139/65
[2023-01-26 08:02] LABS: MAGNESIUM LEVEL 2.6 MG/DL (1.8-2.4)
[2023-01-26 12:22] LABS: INR 2.05; PROTHROMBIN TIME 23.5 SECONDS (12.5-14.5)
[2023-01-26] MEDS ORDERED: LIDOCAINE 1% MDV 20ML VIAL As Ordered ONE (13:35)
[2023-01-26 15:09] VITALS: BP 134/64
[2023-01-26] MEDS: ATORVASTATIN 20 MG TAB PO SCH (16:12)
[2023-01-26] MEDS: amLODIPine 5 MG TAB PO SCH (16:12)
[2023-01-26] MEDS: TAMSULOSIN 0.4 MG CAP PO SCH (16:12)
[2023-01-26] MEDS: PANTOPRAZOLE 40MG TAB (PROTONIX) PO SCH (16:12)
[2023-01-26] MEDS: CYANOCOBALAMIN 250 MCG TABLET PO SCH (16:13)
[2023-01-26] MEDS: predniSONE 20 MG TAB PO SCH (16:45)
[2023-01-26 17:05] LABS: URIC ACID 5.9 MG/DL (3.7-9.2)
[2023-01-26 17:45] VITALS: BP 129/65
[2023-01-26] MEDS: ceFAZolin SOD 1 GM in D5W MINI-BAG PLUS 50 ML IV SCH (18:49)
[2023-01-26] MEDS ORDERED: PILL CUTTER 1 EACH XX PRN (20:20)
[2023-01-26] MEDS: traMADol 50 MG TAB PO PRN (20:33)
[2023-01-26 21:26] VITALS: BP 128/63
[2023-01-27 06:00] VITALS: BP 134/71
[2023-01-27 06:40] LABS: BASO % 0.2 % (0.0-1.0); HEMATOCRIT 30.3 % (42.0-52.0); HEMOGLOBIN 10.3 g/dl (13.5-17.5); LYMPH # 0.5 10^3/uL (1.5-5.0); LYMPH % 2.5 % (24.0-44.0); MEAN CORPUSCULAR HEMOGLOBIN 34.1 pg (27.0-33.0); MEAN CORPUSCULAR VOLUME 100.3 fl (80.0-96.0); MONO # 0.8 10^3/uL (0.0-0.8); MONO % 3.6 % (2.0-8.0); NEUTROPHILS # 19.3 10^3/uL (1.5-8.5); NEUTROPHILS % 91.8 % (36.0-66.0); PLATELET COUNT, AUTOMATED 465 10^3/uL (150-450); RED BLOOD COUNT 3.02 10^6/uL (4.30-6.10)
[2023-01-27 07:10] LABS: BILIRUBIN,TOTAL 0.7 MG/DL (0.3-1.2); CALCIUM LEVEL 9.6 MG/DL (8.3-10.6); CREATININE FOR GFR 3.76 MG/DL (0.70-1.30); GLOMERULAR FILTRATION RATE 16.3 (>35); POTASSIUM SERUM 5.2 MMOL/L (3.5-5.1); TOTAL PROTEIN 6.2 G/DL (5.7-8.2)
[2023-01-27] MEDS ORDERED: PATIROMER SORBITEX CALCIUM 8.4 GM POWDER PACKET (VELTASSA) PO ONE (08:00)
[2023-01-27] MEDS: ATORVASTATIN 20 MG TAB PO SCH (08:19)
[2023-01-27] MEDS: CYANOCOBALAMIN 250 MCG TABLET PO SCH (08:19)
[2023-01-27] MEDS: predniSONE 20 MG TAB PO SCH (08:19)
[2023-01-27] MEDS: PANTOPRAZOLE 40MG TAB (PROTONIX) PO SCH (08:19)
[2023-01-27] MEDS: TAMSULOSIN 0.4 MG CAP PO SCH (08:19)
[2023-01-27] MEDS: ASPIRIN 81MG ENTERIC TABLET PO SCH (08:19)
[2023-01-27] MEDS: FOLIC ACID 1MG TAB PO SCH (08:19)
[2023-01-27] MEDS: ACETAMINOPHEN TAB 650MG DOSE (2X325MG) PO SCH ×2 (08:20→20:20)
[2023-01-27] MEDS: allopurinoL 100 MG TAB PO SCH ×2 (08:21→20:20)
[2023-01-27] MEDS: amLODIPine 5 MG TAB PO SCH (08:21)
[2023-01-27 10:13] LABS: INR 2.21; PROTHROMBIN TIME 24.9 SECONDS (12.5-14.5)
[2023-01-27 13:15] LABS: CALCIUM LEVEL 9.7 MG/DL (8.3-10.6); CREATININE FOR GFR 4.16 MG/DL (0.70-1.30); GLOMERULAR FILTRATION RATE 14.5 (>35); POTASSIUM SERUM 5.1 MMOL/L (3.5-5.1)
[2023-01-27 14:00] VITALS: BP 139/70
[2023-01-27] MEDS: ceFAZolin SOD 1 GM in D5W MINI-BAG PLUS 50 ML IV SCH (17:51)
[2023-01-27 21:14] VITALS: BP 130/57
[2023-01-27] MEDS: traMADol 50 MG TAB PO PRN (21:45)
[2023-01-28 06:00] VITALS: BP 130/63
[2023-01-28 06:49] LABS: BASO # 0.1 10^3/uL (0.0-0.2); BASO % 0.2 % (0.0-1.0); EOS % 0.1 % (0.0-3.0); HEMATOCRIT 29.9 % (42.0-52.0); HEMOGLOBIN 10.3 g/dl (13.5-17.5); LYMPH # 0.9 10^3/uL (1.5-5.0); LYMPH % 3.2 % (24.0-44.0); MEAN CORPUSCULAR HEMOGLOBIN 34.3 pg (27.0-33.0); MEAN CORPUSCULAR HGB CONC 34.4 g/dl (32.0-36.5); MEAN CORPUSCULAR VOLUME 99.7 fl (80.0-96.0); MONO # 1.3 10^3/uL (0.0-0.8); MONO % 4.6 % (2.0-8.0); NEUTROPHILS # 24.9 10^3/uL (1.5-8.5); NEUTROPHILS % 90.1 % (36.0-66.0); PLATELET COUNT, AUTOMATED 523 10^3/uL (150-450); WHITE BLOOD COUNT 27.6 10^3/uL (4.0-10.0)
[2023-01-28 06:58] LABS: INR 2.22
[2023-01-28 07:14] LABS: C REACTIVE PROTEIN QUANTITATIV 18.3 MG/DL (<1.0)
[2023-01-28 07:15] LABS: BILIRUBIN,TOTAL 0.4 MG/DL (0.3-1.2); CALCIUM LEVEL 9.5 MG/DL (8.3-10.6); CREATININE FOR GFR 5.24 MG/DL (0.70-1.30); GLOMERULAR FILTRATION RATE 11.1 (>35); POTASSIUM SERUM 5.1 MMOL/L (3.5-5.1); TOTAL PROTEIN 6.2 G/DL (5.7-8.2)
[2023-01-28] MEDS: ASPIRIN 81MG ENTERIC TABLET PO SCH (09:50)
[2023-01-28] MEDS: allopurinoL 100 MG TAB PO SCH ×2 (09:51→20:25)
[2023-01-28] MEDS: ACETAMINOPHEN TAB 650MG DOSE (2X325MG) PO SCH ×2 (09:51→20:25)
[2023-01-28] MEDS: ATORVASTATIN 20 MG TAB PO SCH (09:51)
[2023-01-28] MEDS: PANTOPRAZOLE 40MG TAB (PROTONIX) PO SCH (09:51)
[2023-01-28] MEDS: CYANOCOBALAMIN 250 MCG TABLET PO SCH (09:52)
[2023-01-28] MEDS: TAMSULOSIN 0.4 MG CAP PO SCH (09:52)
[2023-01-28] MEDS: predniSONE 20 MG TAB PO SCH (09:52)
[2023-01-28] MEDS: FOLIC ACID 1MG TAB PO SCH (09:52)
[2023-01-28] MEDS: amLODIPine 5 MG TAB PO SCH (09:53)
[2023-01-28] MEDS ORDERED: PATIROMER SORBITEX CALCIUM 8.4 GM POWDER PACKET (VELTASSA) PO SCH (12:00)
[2023-01-28 14:00] VITALS: BP 120/59
[2023-01-28] MEDS: ceFAZolin SOD 1 GM in D5W MINI-BAG PLUS 50 ML IV SCH (18:29)
[2023-01-28] MEDS: traMADol 50 MG TAB PO PRN (18:32)
[2023-01-28 22:00] VITALS: BP 126/60
[2023-01-29 06:00] VITALS: BP 127/60
[2023-01-29] MEDS ORDERED: SODIUM CHLORIDE 0.9% 1000ML IV PRN (06:00)
[2023-01-29] MEDS ORDERED: HEPARIN 1,000UNITS/ML 10ML VIAL (FOR RADIOLOGY & DIALYSIS ONLY) IV PRN (06:00)
[2023-01-29 06:12] LABS: BASO % 0.1 % (0.0-1.0); EOS % 0.1 % (0.0-3.0); HEMATOCRIT 29.3 % (42.0-52.0); HEMOGLOBIN 9.8 g/dl (13.5-17.5); LYMPH # 0.6 10^3/uL (1.5-5.0); LYMPH % 2.7 % (24.0-44.0); MEAN CORPUSCULAR HEMOGLOBIN 33.2 pg (27.0-33.0); MEAN CORPUSCULAR HGB CONC 33.4 g/dl (32.0-36.5); MEAN CORPUSCULAR VOLUME 99.3 fl (80.0-96.0); MONO # 0.9 10^3/uL (0.0-0.8); MONO % 3.9 % (2.0-8.0); NEUTROPHILS # 20.9 10^3/uL (1.5-8.5); NEUTROPHILS % 91.5 % (36.0-66.0); PLATELET COUNT, AUTOMATED 568 10^3/uL (150-450); RED BLOOD COUNT 2.95 10^6/uL (4.30-6.10); WHITE BLOOD COUNT 22.8 10^3/uL (4.0-10.0)
[2023-01-29 06:32] LABS: INR 1.81; PROTHROMBIN TIME 21.3 SECONDS (12.5-14.5)
[2023-01-29 06:40] LABS: C REACTIVE PROTEIN QUANTITATIV 11.6 MG/DL (<1.0)
[2023-01-29 07:55] LABS: ALBUMIN 2.1 G/DL (3.2-5.2); BILIRUBIN,TOTAL 0.4 MG/DL (0.3-1.2); CALCIUM LEVEL 9.2 MG/DL (8.3-10.6); CREATININE FOR GFR 6.53 MG/DL (0.70-1.30); GLOMERULAR FILTRATION RATE 8.6 (>35); MAGNESIUM LEVEL 2.7 MG/DL (1.8-2.4); POTASSIUM SERUM 5.5 MMOL/L (3.5-5.1); TOTAL PROTEIN 6.1 G/DL (5.7-8.2)
[2023-01-29] MEDS: CYANOCOBALAMIN 250 MCG TABLET PO SCH (08:42)
[2023-01-29] MEDS: ASPIRIN 81MG ENTERIC TABLET PO SCH (08:42)
[2023-01-29] MEDS: ACETAMINOPHEN TAB 650MG DOSE (2X325MG) PO SCH ×2 (08:43→20:19)
[2023-01-29] MEDS: PANTOPRAZOLE 40MG TAB (PROTONIX) PO SCH (08:45)
[2023-01-29] MEDS: allopurinoL 100 MG TAB PO SCH ×2 (08:45→20:19)
[2023-01-29] MEDS: ATORVASTATIN 20 MG TAB PO SCH (08:45)
[2023-01-29] MEDS: TAMSULOSIN 0.4 MG CAP PO SCH (08:45)
[2023-01-29] MEDS: predniSONE 20 MG TAB PO SCH (08:45)
[2023-01-29] MEDS: FOLIC ACID 1MG TAB PO SCH (08:45)
[2023-01-29] MEDS: amLODIPine 5 MG TAB PO SCH (08:45)
[2023-01-29] MEDS ORDERED: FUROSEMIDE 100MG/10ML VIAL IV ONE (11:30)
[2023-01-29] MEDS ORDERED: metOLazone 5 MG TAB PO ONE (11:30)
[2023-01-29] MEDS ORDERED: PATIROMER SORBITEX CALCIUM 8.4 GM POWDER PACKET (VELTASSA) PO SCH (12:00)
[2023-01-29] MEDS: SODIUM BICARBONATE 325 MG TAB PO SCH ×3 (12:03→20:19)
[2023-01-29] MEDS ORDERED: cefTRIAXone SOD 2 GM in D5W MINI-BAG PLUS 50 ML IV SCH (18:00)
[2023-01-29] MEDS ORDERED: HEPARIN SOD (PORCINE) 5000UNITS/ML 1ML VIAL/SYRINGE IV PRN (18:20)
[2023-01-29] MEDS ORDERED: HEPARIN DRIP 25,000 UNITS in IV 1 EA IV SCH (18:20)
[2023-01-29 22:00] VITALS: BP 140/61
[2023-01-30] VITALS (7 sets, daily range): BP systolic 122–139; BP diastolic 54–67
[2023-01-30] MEDS ORDERED: HEPARIN 1,000UNITS/ML 10ML VIAL (FOR RADIOLOGY & DIALYSIS ONLY) IV PRN ×2 (06:00→11:10)
[2023-01-30] MEDS ORDERED: SODIUM CHLORIDE 0.9% 1000ML IV PRN (06:00)
[2023-01-30 06:10] LABS: BASO % 0.1 % (0.0-1.0); EOS % 0.2 % (0.0-3.0); HEMATOCRIT 26.7 % (42.0-52.0); HEMOGLOBIN 9.5 g/dl (13.5-17.5); LYMPH # 0.7 10^3/uL (1.5-5.0); LYMPH % 3.1 % (24.0-44.0); MEAN CORPUSCULAR HEMOGLOBIN 34.7 pg (27.0-33.0); MEAN CORPUSCULAR HGB CONC 35.6 g/dl (32.0-36.5); MEAN CORPUSCULAR VOLUME 97.4 fl (80.0-96.0); MONO # 1.2 10^3/uL (0.0-0.8); MONO % 5.5 % (2.0-8.0); NEUTROPHILS # 19.5 10^3/uL (1.5-8.5); PLATELET COUNT, AUTOMATED 521 10^3/uL (150-450); RED BLOOD COUNT 2.74 10^6/uL (4.30-6.10); WHITE BLOOD COUNT 21.7 10^3/uL (4.0-10.0)
[2023-01-30 06:21] LABS: INR 1.78; PARTIAL THROMBOPLASTIN TIME 34.3 SECONDS (24.8-34.2)
[2023-01-30] MEDS ORDERED: MIDAZOLAM INJ 2MG/2ML VIAL As Ordered ONE ×2 (07:00→19:14)
[2023-01-30] MEDS ORDERED: fentaNYL 100 MCG/2 ML INJECTION As Ordered ONE ×2 (07:00→19:14)
[2023-01-30] MEDS ORDERED: LIDOCAINE 1% MDV 20ML VIAL As Ordered ONE (07:00)
[2023-01-30 07:05] LABS: BILIRUBIN,TOTAL 0.3 MG/DL (0.3-1.2); CALCIUM LEVEL 8.7 MG/DL (8.3-10.6); CREATININE FOR GFR 7.4 MG/DL (0.70-1.30); GLOMERULAR FILTRATION RATE 7.5 (>35); MAGNESIUM LEVEL 2.6 MG/DL (1.8-2.4); POTASSIUM SERUM 5.6 MMOL/L (3.5-5.1); TOTAL PROTEIN 5.7 G/DL (5.7-8.2)
[2023-01-30] MEDS ORDERED: LIDOCAINE W/EPINEPHRINE 1% 20ML VIAL As Ordered ONE (07:49)
[2023-01-30] MEDS ORDERED: HEPARIN 1,000UNITS/ML 10ML VIAL (FOR RADIOLOGY & DIALYSIS ONLY) As Ordered ONE (07:57)
[2023-01-30] MEDS: ATORVASTATIN 20 MG TAB PO SCH (09:00)
[2023-01-30] MEDS: TAMSULOSIN 0.4 MG CAP PO SCH (09:00)
[2023-01-30] MEDS: amLODIPine 5 MG TAB PO SCH (09:00)
[2023-01-30] MEDS: CYANOCOBALAMIN 250 MCG TABLET PO SCH (09:00)
[2023-01-30] MEDS: FOLIC ACID 1MG TAB PO SCH (09:00)
[2023-01-30] MEDS: PANTOPRAZOLE 40MG TAB (PROTONIX) PO SCH (09:00)
[2023-01-30] MEDS: predniSONE 20 MG TAB PO SCH (09:00)
[2023-01-30] MEDS: ASPIRIN 81MG ENTERIC TABLET PO SCH (09:00)
[2023-01-30] MEDS: allopurinoL 100 MG TAB PO SCH ×2 (09:00→21:05)
[2023-01-30] MEDS: ACETAMINOPHEN TAB 650MG DOSE (2X325MG) PO SCH ×2 (10:07→21:05)
[2023-01-30] MEDS: AMPICILLIN SOD 2 GM in D5W MINI-BAG PLUS 100 ML IV SCH (18:35)
[2023-01-30] MEDS ORDERED: LIDOCAINE 2% 100MG/5ML SDV (FOR ANES.) As Ordered ONE (19:14)
[2023-01-30] MEDS ORDERED: propofoL 200 MG/20 ML VIAL As Ordered ONE (19:14)
[2023-01-30] MEDS ORDERED: CETACAINE SPRAY 5GM As Ordered ONE (19:29)
[2023-01-30] MEDS ORDERED: LIDOCAINE VISCOUS 2% SOLN 15ML UDC As Ordered ONE (19:29)
[2023-01-30] MEDS ORDERED: LR 1,000 ML IV SCH (20:05)
[2023-01-30] MEDS ORDERED: ONDANSETRON 4MG 2ML VIAL IV PRN (20:05)
[2023-01-30] MEDS ORDERED: fentaNYL 100 MCG/2 ML INJECTION IV PRN (20:05)
[2023-01-31 00:07] VITALS: BP 125/55
[2023-01-31 01:06] VITALS: BP 126/55
[2023-01-31] MEDS: traMADol 50 MG TAB PO PRN (01:15)
[2023-01-31 05:52] VITALS: BP 128/56
[2023-01-31] MEDS ORDERED: HEPARIN 1,000UNITS/ML 10ML VIAL (FOR RADIOLOGY & DIALYSIS ONLY) IV PRN (06:00)
[2023-01-31] MEDS ORDERED: SODIUM CHLORIDE 0.9% 1000ML IV PRN (06:00)
[2023-01-31] MEDS: ATORVASTATIN 20 MG TAB PO SCH (06:03)
[2023-01-31] MEDS: ASPIRIN 81MG ENTERIC TABLET PO SCH (06:03)
[2023-01-31] MEDS: AMPICILLIN SOD 2 GM in D5W MINI-BAG PLUS 100 ML IV SCH ×2 (06:03→17:47)
[2023-01-31] MEDS: allopurinoL 100 MG TAB PO SCH ×2 (06:04→21:32)
[2023-01-31] MEDS: FOLIC ACID 1MG TAB PO SCH (06:04)
[2023-01-31] MEDS: PANTOPRAZOLE 40MG TAB (PROTONIX) PO SCH (06:04)
[2023-01-31] MEDS: ACETAMINOPHEN TAB 650MG DOSE (2X325MG) PO SCH ×2 (06:04→21:36)
[2023-01-31] MEDS: TAMSULOSIN 0.4 MG CAP PO SCH (06:04)
[2023-01-31] MEDS: CYANOCOBALAMIN 250 MCG TABLET PO SCH (06:05)
[2023-01-31 07:01] LABS: BASO % 0.1 % (0.0-1.0); EOS # 0.1 10^3/uL (0.0-0.5); EOS % 0.7 % (0.0-3.0); HEMATOCRIT 29.2 % (42.0-52.0); LYMPH # 0.9 10^3/uL (1.5-5.0); LYMPH % 5.1 % (24.0-44.0); MEAN CORPUSCULAR HEMOGLOBIN 33.7 pg (27.0-33.0); MEAN CORPUSCULAR HGB CONC 34.2 g/dl (32.0-36.5); MEAN CORPUSCULAR VOLUME 98.3 fl (80.0-96.0); MONO # 1.4 10^3/uL (0.0-0.8); MONO % 8.5 % (2.0-8.0); NEUTROPHILS # 14.1 10^3/uL (1.5-8.5); NEUTROPHILS % 84.4 % (36.0-66.0); PLATELET COUNT, AUTOMATED 511 10^3/uL (150-450); RED BLOOD COUNT 2.97 10^6/uL (4.30-6.10); WHITE BLOOD COUNT 16.7 10^3/uL (4.0-10.0)
[2023-01-31 07:19] LABS: INR 1.49; PROTHROMBIN TIME 18.3 SECONDS (12.5-14.5)
[2023-01-31 07:25] LABS: ALBUMIN 2.1 G/DL (3.2-5.2); ALKALINE PHOSPHATASE 207 U/L (46-116); ALT/SGPT < 9 U/L (7.0-40); AST/SGOT 29 U/L (<34); BILIRUBIN,TOTAL 0.6 MG/DL (0.3-1.2); BLOOD UREA NITROGEN 83 MG/DL (9-23); CALCIUM LEVEL 8.5 MG/DL (8.3-10.6); CARBON DIOXIDE LEVEL 25 MMOL/L (20-31); CHLORIDE LEVEL 96 MMOL/L (98-107); CREATININE FOR GFR 4.38 MG/DL (0.70-1.30); GLOMERULAR FILTRATION RATE 13.7 (>35); GLUCOSE, FASTING 80 MG/DL (74-106); MAGNESIUM LEVEL 2.2 MG/DL (1.8-2.4); POTASSIUM SERUM 4.9 MMOL/L (3.5-5.1); SODIUM LEVEL 134 MMOL/L (136-145); TOTAL PROTEIN 5.9 G/DL (5.7-8.2)
[2023-01-31] MEDS: amLODIPine 5 MG TAB PO SCH (08:55)
[2023-01-31] MEDS ORDERED: PERCOCET 5MG/325MG TAB PO PRN (09:55)
[2023-01-31] MEDS ORDERED: APIXABAN 2.5 MG TAB (ELIQUIS) PO ONE (09:55)
[2023-01-31] MEDS: APIXABAN 2.5 MG TAB (ELIQUIS) PO SCH (21:32)
[2023-01-31 21:38] VITALS: BP 137/61
[2023-02-01] MEDS: AMPICILLIN SOD 2 GM in D5W MINI-BAG PLUS 100 ML IV SCH ×2 (05:28→18:09)
[2023-02-01 05:29] VITALS: BP 142/65
[2023-02-01 06:46] LABS: BASO # 0.1 10^3/uL (0.0-0.2); BASO % 0.3 % (0.0-1.0); EOS # 0.3 10^3/uL (0.0-0.5); EOS % 1.9 % (0.0-3.0); HEMATOCRIT 28.3 % (42.0-52.0); HEMOGLOBIN 9.7 g/dl (13.5-17.5); LYMPH # 0.6 10^3/uL (1.5-5.0); LYMPH % 3.6 % (24.0-44.0); MEAN CORPUSCULAR HGB CONC 34.3 g/dl (32.0-36.5); MEAN CORPUSCULAR VOLUME 99.3 fl (80.0-96.0); MONO # 1.4 10^3/uL (0.0-0.8); MONO % 8.7 % (2.0-8.0); NEUTROPHILS # 13.6 10^3/uL (1.5-8.5); NEUTROPHILS % 84.3 % (36.0-66.0); PLATELET COUNT, AUTOMATED 480 10^3/uL (150-450); RED BLOOD COUNT 2.85 10^6/uL (4.30-6.10); WHITE BLOOD COUNT 16.1 10^3/uL (4.0-10.0)
[2023-02-01 07:16] LABS: ALKALINE PHOSPHATASE 189 U/L (46-116); ALT/SGPT < 9 U/L (7.0-40); AST/SGOT 28 U/L (<34); BILIRUBIN,TOTAL 0.7 MG/DL (0.3-1.2); BLOOD UREA NITROGEN 44 MG/DL (9-23); CALCIUM LEVEL 8.5 MG/DL (8.3-10.6); CARBON DIOXIDE LEVEL 25 MMOL/L (20-31); CHLORIDE LEVEL 95 MMOL/L (98-107); CREATININE FOR GFR 3.32 MG/DL (0.70-1.30); GLOMERULAR FILTRATION RATE 18.8 (>35); GLUCOSE, FASTING 117 MG/DL (74-106); MAGNESIUM LEVEL 1.9 MG/DL (1.8-2.4); POTASSIUM SERUM 4.4 MMOL/L (3.5-5.1); SODIUM LEVEL 132 MMOL/L (136-145); TOTAL PROTEIN 5.8 G/DL (5.7-8.2)
[2023-02-01 07:26] LABS: INR 1.54; PROTHROMBIN TIME 18.8 SECONDS (12.5-14.5)
[2023-02-01] MEDS: PANTOPRAZOLE 40MG TAB (PROTONIX) PO SCH (08:17)
[2023-02-01] MEDS: ASPIRIN 81MG ENTERIC TABLET PO SCH (08:18)
[2023-02-01] MEDS: ATORVASTATIN 20 MG TAB PO SCH (08:19)
[2023-02-01] MEDS: CYANOCOBALAMIN 250 MCG TABLET PO SCH (08:19)
[2023-02-01] MEDS: allopurinoL 100 MG TAB PO SCH ×2 (08:19→20:31)
[2023-02-01] MEDS: ACETAMINOPHEN TAB 650MG DOSE (2X325MG) PO SCH ×2 (08:19→20:32)
[2023-02-01] MEDS: TAMSULOSIN 0.4 MG CAP PO SCH (08:19)
[2023-02-01] MEDS: APIXABAN 2.5 MG TAB (ELIQUIS) PO SCH ×2 (08:20→20:31)
[2023-02-01] MEDS: FOLIC ACID 1MG TAB PO SCH (08:21)
[2023-02-01] MEDS: amLODIPine 5 MG TAB PO SCH (08:21)
[2023-02-01] MEDS: PERCOCET 5MG/325MG TAB PO PRN ×2 (11:20→17:05)
[2023-02-01] MEDS ORDERED: DARBEPOETIN 100MCG/0.5ML *DIALYSIS* SYRINGE IV SCH (12:00)
[2023-02-01 14:00] VITALS: BP 125/60
[2023-02-01 19:37] VITALS: BP 129/61
[2023-02-02] MEDS: PERCOCET 5MG/325MG TAB PO PRN ×2 (01:44→16:48)
[2023-02-02] MEDS ORDERED: ANALGESIC BALM CRM 3OZ TOP PRN (02:45)
[2023-02-02] MEDS ORDERED: MORPHINE 2 MG/ML 1ML VIAL IV ONE (03:00)
[2023-02-02] MEDS ORDERED: HEPARIN 1,000UNITS/ML 10ML VIAL (FOR RADIOLOGY & DIALYSIS ONLY) IV PRN (06:00)
[2023-02-02] MEDS ORDERED: HEPARIN 1,000UNITS/ML 10ML VIAL (FOR RADIOLOGY & DIALYSIS ONLY) XX SCH (06:00)
[2023-02-02] MEDS ORDERED: SODIUM CHLORIDE 0.9% 1000ML IV PRN (06:00)
[2023-02-02 06:02] LABS: BASO # 0.1 10^3/uL (0.0-0.2); BASO % 0.4 % (0.0-1.0); EOS # 0.2 10^3/uL (0.0-0.5); EOS % 1.3 % (0.0-3.0); HEMATOCRIT 30.8 % (42.0-52.0); HEMOGLOBIN 10.3 g/dl (13.5-17.5); LYMPH # 0.3 10^3/uL (1.5-5.0); LYMPH % 1.8 % (24.0-44.0); MEAN CORPUSCULAR HGB CONC 33.4 g/dl (32.0-36.5); MEAN CORPUSCULAR VOLUME 101.7 fl (80.0-96.0); MONO # 1.2 10^3/uL (0.0-0.8); MONO % 6.2 % (2.0-8.0); NEUTROPHILS # 16.6 10^3/uL (1.5-8.5); NEUTROPHILS % 89.1 % (36.0-66.0); PLATELET COUNT, AUTOMATED 446 10^3/uL (150-450); RED BLOOD COUNT 3.03 10^6/uL (4.30-6.10); WHITE BLOOD COUNT 18.6 10^3/uL (4.0-10.0)
[2023-02-02] MEDS: allopurinoL 100 MG TAB PO SCH ×2 (06:11→20:53)
[2023-02-02] MEDS: AMPICILLIN SOD 2 GM in D5W MINI-BAG PLUS 100 ML IV SCH ×2 (06:11→17:03)
[2023-02-02] MEDS: ATORVASTATIN 20 MG TAB PO SCH (06:11)
[2023-02-02] MEDS: ASPIRIN 81MG ENTERIC TABLET PO SCH (06:11)
[2023-02-02] MEDS: FOLIC ACID 1MG TAB PO SCH (06:11)
[2023-02-02] MEDS: PANTOPRAZOLE 40MG TAB (PROTONIX) PO SCH (06:11)
[2023-02-02] MEDS: ACETAMINOPHEN TAB 650MG DOSE (2X325MG) PO SCH ×2 (06:12→20:53)
[2023-02-02] MEDS: APIXABAN 2.5 MG TAB (ELIQUIS) PO SCH (06:12)
[2023-02-02] MEDS: TAMSULOSIN 0.4 MG CAP PO SCH (06:12)
[2023-02-02] MEDS: CYANOCOBALAMIN 250 MCG TABLET PO SCH (06:12)
[2023-02-02 06:13] VITALS: BP 125/62
[2023-02-02 06:40] LABS: ALKALINE PHOSPHATASE 181 U/L (46-116); ALT/SGPT < 9 U/L (7.0-40); AST/SGOT 17 U/L (<34); BILIRUBIN,TOTAL 0.7 MG/DL (0.3-1.2); BLOOD UREA NITROGEN 61 MG/DL (9-23); CALCIUM LEVEL 8.6 MG/DL (8.3-10.6); CARBON DIOXIDE LEVEL 26 MMOL/L (20-31); CHLORIDE LEVEL 93 MMOL/L (98-107); CREATININE FOR GFR 5.01 MG/DL (0.70-1.30); GLOMERULAR FILTRATION RATE 11.7 (>35); GLUCOSE, FASTING 114 MG/DL (74-106); MAGNESIUM LEVEL 2.1 MG/DL (1.8-2.4); POTASSIUM SERUM 5.4 MMOL/L (3.5-5.1); SODIUM LEVEL 130 MMOL/L (136-145); TOTAL PROTEIN 5.9 G/DL (5.7-8.2)
[2023-02-02] MEDS: amLODIPine 5 MG TAB PO SCH (08:09)
[2023-02-02 14:00] VITALS: BP 118/59
[2023-02-02 17:13] LABS: BASO # 0.1 10^3/uL (0.0-0.2); BASO % 0.4 % (0.0-1.0); EOS # 0.2 10^3/uL (0.0-0.5); EOS % 1.3 % (0.0-3.0); HEMATOCRIT 35.3 % (42.0-52.0); HEMOGLOBIN 11.6 g/dl (13.5-17.5); LYMPH # 0.4 10^3/uL (1.5-5.0); MEAN CORPUSCULAR HEMOGLOBIN 33.8 pg (27.0-33.0); MEAN CORPUSCULAR HGB CONC 32.9 g/dl (32.0-36.5); MEAN CORPUSCULAR VOLUME 102.9 fl (80.0-96.0); MONO # 1.1 10^3/uL (0.0-0.8); MONO % 6.4 % (2.0-8.0); NEUTROPHILS # 15.8 10^3/uL (1.5-8.5); NEUTROPHILS % 88.7 % (36.0-66.0); PLATELET COUNT, AUTOMATED 504 10^3/uL (150-450); RED BLOOD COUNT 3.43 10^6/uL (4.30-6.10); WHITE BLOOD COUNT 17.9 10^3/uL (4.0-10.0)
[2023-02-02 17:19] LABS: INR 1.88; PROTHROMBIN TIME 21.9 SECONDS (12.5-14.5)
[2023-02-02 17:20] LABS: PARTIAL THROMBOPLASTIN TIME 39.5 SECONDS (24.8-34.2)
[2023-02-02 17:30] LABS: C REACTIVE PROTEIN QUANTITATIV 30.7 MG/DL (<1.0); CALCIUM LEVEL 8.7 MG/DL (8.3-10.6); CREATININE FOR GFR 2.8 MG/DL (0.70-1.30); GLOMERULAR FILTRATION RATE 22.9 (>35); POTASSIUM SERUM 4.6 MMOL/L (3.5-5.1)
[2023-02-02 22:00] VITALS: BP 115/57
[2023-02-03 02:00] VITALS: BP 126/57
[2023-02-03] MEDS: PERCOCET 5MG/325MG TAB PO PRN ×3 (03:57→21:15)
[2023-02-03] MEDS: AMPICILLIN SOD 2 GM in D5W MINI-BAG PLUS 100 ML IV SCH ×2 (05:42→18:04)
[2023-02-03 05:50] VITALS: BP 123/55
[2023-02-03 07:02] LABS: BASO # 0.1 10^3/uL (0.0-0.2); BASO % 0.5 % (0.0-1.0); EOS # 0.4 10^3/uL (0.0-0.5); EOS % 2.9 % (0.0-3.0); HEMATOCRIT 28.8 % (42.0-52.0); HEMOGLOBIN 9.5 g/dl (13.5-17.5); LYMPH # 0.4 10^3/uL (1.5-5.0); LYMPH % 2.8 % (24.0-44.0); MEAN CORPUSCULAR HEMOGLOBIN 34.1 pg (27.0-33.0); MEAN CORPUSCULAR VOLUME 103.2 fl (80.0-96.0); MONO # 1.3 10^3/uL (0.0-0.8); MONO % 8.4 % (2.0-8.0); NEUTROPHILS % 84.1 % (36.0-66.0); PLATELET COUNT, AUTOMATED 455 10^3/uL (150-450); RED BLOOD COUNT 2.79 10^6/uL (4.30-6.10); WHITE BLOOD COUNT 15.4 10^3/uL (4.0-10.0)
[2023-02-03 07:06] LABS: INR 1.79; PROTHROMBIN TIME 21.1 SECONDS (12.5-14.5)
[2023-02-03 07:07] LABS: PARTIAL THROMBOPLASTIN TIME 41.7 SECONDS (24.8-34.2)
[2023-02-03 07:23] LABS: ALBUMIN 1.8 G/DL (3.2-5.2); ALKALINE PHOSPHATASE 170 U/L (46-116); ALT/SGPT < 9 U/L (7.0-40); AST/SGOT 14 U/L (<34); BILIRUBIN,TOTAL 0.6 MG/DL (0.3-1.2); BLOOD UREA NITROGEN 39 MG/DL (9-23); CALCIUM LEVEL 8.8 MG/DL (8.3-10.6); CARBON DIOXIDE LEVEL 26 MMOL/L (20-31); CHLORIDE LEVEL 94 MMOL/L (98-107); CREATININE FOR GFR 3.84 MG/DL (0.70-1.30); GLOMERULAR FILTRATION RATE 15.9 (>35); GLUCOSE, FASTING 125 MG/DL (74-106); MAGNESIUM LEVEL 1.8 MG/DL (1.8-2.4); POTASSIUM SERUM 4.7 MMOL/L (3.5-5.1); SODIUM LEVEL 130 MMOL/L (136-145); TOTAL PROTEIN 5.6 G/DL (5.7-8.2)
[2023-02-03] MEDS: ASPIRIN 81MG ENTERIC TABLET PO SCH (09:14)
[2023-02-03] MEDS: ACETAMINOPHEN TAB 650MG DOSE (2X325MG) PO SCH ×2 (09:14→21:11)
[2023-02-03] MEDS: FOLIC ACID 1MG TAB PO SCH (09:14)
[2023-02-03] MEDS: CYANOCOBALAMIN 250 MCG TABLET PO SCH (09:17)
[2023-02-03] MEDS: allopurinoL 100 MG TAB PO SCH ×2 (09:17→21:09)
[2023-02-03] MEDS: amLODIPine 5 MG TAB PO SCH (09:17)
[2023-02-03] MEDS: ATORVASTATIN 20 MG TAB PO SCH (09:17)
[2023-02-03] MEDS: TAMSULOSIN 0.4 MG CAP PO SCH (09:17)
[2023-02-03] MEDS: PANTOPRAZOLE 40MG TAB (PROTONIX) PO SCH (09:17)
[2023-02-03 10:00] VITALS: BP 121/54
[2023-02-03 14:00] VITALS: BP 121/54
[2023-02-03 18:00] VITALS: BP 120/53
[2023-02-03 23:30] VITALS: BP 126/53
[2023-02-04 04:00] VITALS: BP 121/52
[2023-02-04] MEDS: AMPICILLIN SOD 2 GM in D5W MINI-BAG PLUS 100 ML IV SCH ×2 (05:41→18:40)
[2023-02-04 07:24] LABS: BASO # 0.1 10^3/uL (0.0-0.2); BASO % 0.3 % (0.0-1.0); EOS # 0.5 10^3/uL (0.0-0.5); EOS % 3.1 % (0.0-3.0); HEMATOCRIT 27.3 % (42.0-52.0); HEMOGLOBIN 8.8 g/dl (13.5-17.5); LYMPH # 0.5 10^3/uL (1.5-5.0); LYMPH % 3.1 % (24.0-44.0); MEAN CORPUSCULAR HEMOGLOBIN 33.3 pg (27.0-33.0); MEAN CORPUSCULAR HGB CONC 32.2 g/dl (32.0-36.5); MEAN CORPUSCULAR VOLUME 103.4 fl (80.0-96.0); MONO # 1.1 10^3/uL (0.0-0.8); MONO % 6.8 % (2.0-8.0); NEUTROPHILS # 13.4 10^3/uL (1.5-8.5); PLATELET COUNT, AUTOMATED 428 10^3/uL (150-450); RED BLOOD COUNT 2.64 10^6/uL (4.30-6.10); WHITE BLOOD COUNT 15.7 10^3/uL (4.0-10.0)
[2023-02-04 07:58] LABS: ALBUMIN 1.8 G/DL (3.2-5.2); ALKALINE PHOSPHATASE 275 U/L (46-116); ALT/SGPT < 9 U/L (7.0-40); AST/SGOT 20 U/L (<34); BILIRUBIN,TOTAL 0.8 MG/DL (0.3-1.2); BLOOD UREA NITROGEN 56 MG/DL (9-23); CALCIUM LEVEL 8.7 MG/DL (8.3-10.6); CARBON DIOXIDE LEVEL 25 MMOL/L (20-31); CHLORIDE LEVEL 92 MMOL/L (98-107); CREATININE FOR GFR 5.53 MG/DL (0.70-1.30); GLOMERULAR FILTRATION RATE 10.4 (>35); GLUCOSE, FASTING 94 MG/DL (74-106); POTASSIUM SERUM 5.2 MMOL/L (3.5-5.1); SODIUM LEVEL 127 MMOL/L (136-145); TOTAL PROTEIN 5.5 G/DL (5.7-8.2)
[2023-02-04] MEDS: PERCOCET 5MG/325MG TAB PO PRN ×2 (08:38→20:10)
[2023-02-04] MEDS: ASPIRIN 81MG ENTERIC TABLET PO SCH (08:38)
[2023-02-04] MEDS: ATORVASTATIN 20 MG TAB PO SCH (08:39)
[2023-02-04] MEDS: PANTOPRAZOLE 40MG TAB (PROTONIX) PO SCH (08:39)
[2023-02-04] MEDS: FOLIC ACID 1MG TAB PO SCH (08:41)
[2023-02-04] MEDS: allopurinoL 100 MG TAB PO SCH ×2 (08:42→20:10)
[2023-02-04] MEDS: ACETAMINOPHEN TAB 650MG DOSE (2X325MG) PO SCH ×2 (08:42→20:10)
[2023-02-04] MEDS: CYANOCOBALAMIN 250 MCG TABLET PO SCH (08:42)
[2023-02-04] MEDS: TAMSULOSIN 0.4 MG CAP PO SCH (08:42)
[2023-02-04] MEDS: amLODIPine 5 MG TAB PO SCH (08:42)
[2023-02-04 21:07] VITALS: BP 125/50
[2023-02-05] VITALS: BP 123/51
[2023-02-05] MEDS: PERCOCET 5MG/325MG TAB PO PRN (03:24)
[2023-02-05] MEDS ORDERED: HEPARIN 1,000UNITS/ML 10ML VIAL (FOR RADIOLOGY & DIALYSIS ONLY) XX SCH (04:55)
[2023-02-05] MEDS ORDERED: SODIUM CHLORIDE 0.9% 1000ML IV PRN (04:55)
[2023-02-05] MEDS ORDERED: HEPARIN 1,000UNITS/ML 10ML VIAL (FOR RADIOLOGY & DIALYSIS ONLY) IV PRN (04:55)
[2023-02-05 06:00] VITALS: BP 126/58
[2023-02-05 06:02] LABS: BASO # 0.1 10^3/uL (0.0-0.2); BASO % 0.3 % (0.0-1.0); EOS # 0.5 10^3/uL (0.0-0.5); EOS % 2.5 % (0.0-3.0); HEMATOCRIT 26.7 % (42.0-52.0); HEMOGLOBIN 8.9 g/dl (13.5-17.5); LYMPH # 0.6 10^3/uL (1.5-5.0); MEAN CORPUSCULAR HEMOGLOBIN 34.4 pg (27.0-33.0); MEAN CORPUSCULAR HGB CONC 33.3 g/dl (32.0-36.5); MEAN CORPUSCULAR VOLUME 103.1 fl (80.0-96.0); MONO # 1.3 10^3/uL (0.0-0.8); NEUTROPHILS # 15.8 10^3/uL (1.5-8.5); NEUTROPHILS % 85.3 % (36.0-66.0); PLATELET COUNT, AUTOMATED 413 10^3/uL (150-450); RED BLOOD COUNT 2.59 10^6/uL (4.30-6.10); WHITE BLOOD COUNT 18.5 10^3/uL (4.0-10.0)
[2023-02-05] MEDS: AMPICILLIN SOD 2 GM in D5W MINI-BAG PLUS 100 ML IV SCH (06:05)
[2023-02-05 06:27] LABS: C REACTIVE PROTEIN QUANTITATIV 27.4 MG/DL (<1.0)
[2023-02-05 06:29] LABS: ALBUMIN 1.8 G/DL (3.2-5.2); BILIRUBIN,TOTAL 0.5 MG/DL (0.3-1.2); CALCIUM LEVEL 8.7 MG/DL (8.3-10.6); CREATININE FOR GFR 6.97 MG/DL (0.70-1.30); MAGNESIUM LEVEL 2.1 MG/DL (1.8-2.4); POTASSIUM SERUM 5.8 MMOL/L (3.5-5.1); TOTAL PROTEIN 5.9 G/DL (5.7-8.2)
[2023-02-05] MEDS: allopurinoL 100 MG TAB PO SCH ×2 (06:42→22:05)
[2023-02-05] MEDS: PANTOPRAZOLE 40MG TAB (PROTONIX) PO SCH (06:42)
[2023-02-05] MEDS: CYANOCOBALAMIN 250 MCG TABLET PO SCH (06:42)
[2023-02-05] MEDS: TAMSULOSIN 0.4 MG CAP PO SCH (06:42)
[2023-02-05] MEDS: FOLIC ACID 1MG TAB PO SCH (06:42)
[2023-02-05] MEDS: ATORVASTATIN 20 MG TAB PO SCH (06:42)
[2023-02-05] MEDS: ASPIRIN 81MG ENTERIC TABLET PO SCH (06:42)
[2023-02-05] MEDS: ACETAMINOPHEN TAB 650MG DOSE (2X325MG) PO SCH ×2 (06:43→22:05)
[2023-02-05] MEDS ORDERED: CEFEPIME HCL 2 GM in D5W MINI-BAG PLUS 50 ML IV SCH (07:20)
[2023-02-05] MEDS: amLODIPine 5 MG TAB PO SCH (08:01)
[2023-02-05] MEDS ORDERED: VARIBAR PUDDING 40% w/v 230ML TUBE As Ordered ONE (10:00)
[2023-02-05] MEDS ORDERED: E-Z-PAQUE 96% w/w SUSP 176GM BTL As Ordered ONE (10:01)
[2023-02-05] MEDS ORDERED: BARIUM SULFATE 700 MG TABLET (E-Z-DISK) As Ordered ONE (10:01)
[2023-02-05] MEDS ORDERED: VARIBAR NECTAR 40% w/v 240ML SUSP BTL As Ordered ONE (10:01)
[2023-02-05] MEDS: PIPERACILLIN/TAZOBACTAM SOD 4.5 GM in D5W MINI-BAG PLUS 50 ML IV SCH ×2 (13:51→22:05)
[2023-02-05 14:00] VITALS: BP 117/51
[2023-02-05 20:27] VITALS: BP 120/52
[2023-02-06 05:34] VITALS: BP 138/65
[2023-02-06 06:33] LABS: BASO # 0.1 10^3/uL (0.0-0.2); BASO % 0.8 % (0.0-1.0); EOS # 0.5 10^3/uL (0.0-0.5); EOS % 3.5 % (0.0-3.0); HEMATOCRIT 30.7 % (42.0-52.0); HEMOGLOBIN 9.7 g/dl (13.5-17.5); LYMPH # 0.7 10^3/uL (1.5-5.0); LYMPH % 5.1 % (24.0-44.0); MEAN CORPUSCULAR HEMOGLOBIN 33.3 pg (27.0-33.0); MEAN CORPUSCULAR HGB CONC 31.6 g/dl (32.0-36.5); MEAN CORPUSCULAR VOLUME 105.5 fl (80.0-96.0); MONO # 1.1 10^3/uL (0.0-0.8); NEUTROPHILS # 11.5 10^3/uL (1.5-8.5); NEUTROPHILS % 80.5 % (36.0-66.0); PLATELET COUNT, AUTOMATED 417 10^3/uL (150-450); RED BLOOD COUNT 2.91 10^6/uL (4.30-6.10); WHITE BLOOD COUNT 14.3 10^3/uL (4.0-10.0)
[2023-02-06 06:54] LABS: ALBUMIN 1.9 G/DL (3.2-5.2); BILIRUBIN,TOTAL 0.6 MG/DL (0.3-1.2); C REACTIVE PROTEIN QUANTITATIV 23.3 MG/DL (<1.0); CALCIUM LEVEL 9.2 MG/DL (8.3-10.6); CREATININE FOR GFR 4.06 MG/DL (0.70-1.30); GLOMERULAR FILTRATION RATE 14.9 (>35); MAGNESIUM LEVEL 1.9 MG/DL (1.8-2.4); TOTAL PROTEIN 6.1 G/DL (5.7-8.2)
[2023-02-06] MEDS: ATORVASTATIN 20 MG TAB PO SCH (09:20)
[2023-02-06] MEDS: APIXABAN 2.5 MG TAB (ELIQUIS) PO SCH ×2 (09:20→21:06)
[2023-02-06] MEDS: ACETAMINOPHEN TAB 650MG DOSE (2X325MG) PO SCH ×2 (09:20→21:05)
[2023-02-06] MEDS: TAMSULOSIN 0.4 MG CAP PO SCH (09:20)
[2023-02-06] MEDS: ASPIRIN 81MG ENTERIC TABLET PO SCH (09:20)
[2023-02-06] MEDS: FOLIC ACID 1MG TAB PO SCH (09:20)
[2023-02-06] MEDS: CYANOCOBALAMIN 250 MCG TABLET PO SCH (09:20)
[2023-02-06] MEDS: allopurinoL 100 MG TAB PO SCH ×2 (09:20→21:06)
[2023-02-06] MEDS: PANTOPRAZOLE 40MG TAB (PROTONIX) PO SCH (09:21)
[2023-02-06] MEDS: PIPERACILLIN/TAZOBACTAM SOD 4.5 GM in D5W MINI-BAG PLUS 50 ML IV SCH ×2 (11:53→23:16)
[2023-02-06] MEDS: PERCOCET 5MG/325MG TAB PO PRN (12:24)
[2023-02-06 18:30] VITALS: BP 122/75
[2023-02-06 18:56] VITALS: BP 120/72
[2023-02-07] MEDS ORDERED: HEPARIN 1,000UNITS/ML 10ML VIAL (FOR RADIOLOGY & DIALYSIS ONLY) IV PRN (04:50)
[2023-02-07] MEDS ORDERED: SODIUM CHLORIDE 0.9% 1000ML IV PRN (04:50)
[2023-02-07] MEDS ORDERED: HEPARIN 1,000UNITS/ML 10ML VIAL (FOR RADIOLOGY & DIALYSIS ONLY) XX SCH (04:50)
[2023-02-07 05:25] VITALS: BP 135/66
[2023-02-07] MEDS: FOLIC ACID 1MG TAB PO SCH (05:27)
[2023-02-07] MEDS: ACETAMINOPHEN TAB 650MG DOSE (2X325MG) PO SCH ×2 (05:27→21:43)
[2023-02-07] MEDS: TAMSULOSIN 0.4 MG CAP PO SCH (05:27)
[2023-02-07] MEDS: ASPIRIN 81MG ENTERIC TABLET PO SCH (05:27)
[2023-02-07] MEDS: CYANOCOBALAMIN 250 MCG TABLET PO SCH (05:27)
[2023-02-07] MEDS: ATORVASTATIN 20 MG TAB PO SCH (05:28)
[2023-02-07] MEDS: allopurinoL 100 MG TAB PO SCH ×2 (05:28→21:43)
[2023-02-07] MEDS: APIXABAN 2.5 MG TAB (ELIQUIS) PO SCH ×2 (05:28→21:43)
[2023-02-07] MEDS: PANTOPRAZOLE 40MG TAB (PROTONIX) PO SCH (05:28)
[2023-02-07 06:02] LABS: BASO # 0.1 10^3/uL (0.0-0.2); BASO % 0.6 % (0.0-1.0); EOS # 0.6 10^3/uL (0.0-0.5); EOS % 3.9 % (0.0-3.0); HEMATOCRIT 28.9 % (42.0-52.0); HEMOGLOBIN 9.2 g/dl (13.5-17.5); LYMPH # 1.2 10^3/uL (1.5-5.0); LYMPH % 7.8 % (24.0-44.0); MEAN CORPUSCULAR HEMOGLOBIN 33.7 pg (27.0-33.0); MEAN CORPUSCULAR HGB CONC 31.8 g/dl (32.0-36.5); MEAN CORPUSCULAR VOLUME 105.9 fl (80.0-96.0); MONO # 1.4 10^3/uL (0.0-0.8); MONO % 9.1 % (2.0-8.0); NEUTROPHILS # 11.4 10^3/uL (1.5-8.5); NEUTROPHILS % 76.4 % (36.0-66.0); PLATELET COUNT, AUTOMATED 376 10^3/uL (150-450); RED BLOOD COUNT 2.73 10^6/uL (4.30-6.10); WHITE BLOOD COUNT 14.9 10^3/uL (4.0-10.0)
[2023-02-07 06:20] LABS: C REACTIVE PROTEIN QUANTITATIV 15.5 MG/DL (<1.0)
[2023-02-07 06:21] LABS: ALBUMIN 1.8 G/DL (3.2-5.2); BILIRUBIN,TOTAL 0.4 MG/DL (0.3-1.2); CALCIUM LEVEL 9.3 MG/DL (8.3-10.6); CREATININE FOR GFR 5.72 MG/DL (0.70-1.30); TOTAL PROTEIN 5.8 G/DL (5.7-8.2)
[2023-02-07] MEDS: PERCOCET 5MG/325MG TAB PO PRN (09:27)
[2023-02-07] MEDS: PIPERACILLIN/TAZOBACTAM SOD 4.5 GM in D5W MINI-BAG PLUS 50 ML IV SCH ×2 (13:08→23:27)
[2023-02-07 15:22] VITALS: BP 124/62
[2023-02-07] MEDS ORDERED: METOPROLOL TART 25 MG TABLET PO ONE (16:00)
[2023-02-07 16:30] VITALS: BP_SYST 104; BP_SYST 99; BP_DIAS 63; BP_DIAS 64
[2023-02-07 17:39] VITALS: BP 114/56
[2023-02-07] MEDS: METOPROLOL TART 12.5 MG PER 1/2 TAB PO SCH ×2 (18:25→23:28)
[2023-02-07 20:00] VITALS: BP 144/91
[2023-02-07 23:58] VITALS: BP 144/59
[2023-02-08] VITALS (9 sets, daily range): BP systolic 90–122; BP diastolic 46–59
[2023-02-08] MEDS: PERCOCET 5MG/325MG TAB PO PRN ×2 (03:03→23:50)
[2023-02-08] MEDS ORDERED: NS 250 ML IV ONE (05:05)
[2023-02-08] MEDS: METOPROLOL TART 12.5 MG PER 1/2 TAB PO SCH ×4 (05:24→20:21)
[2023-02-08 06:09] LABS: BASO # 0.1 10^3/uL (0.0-0.2); BASO % 0.7 % (0.0-1.0); EOS # 0.4 10^3/uL (0.0-0.5); EOS % 2.9 % (0.0-3.0); HEMATOCRIT 28.4 % (42.0-52.0); HEMOGLOBIN 8.9 g/dl (13.5-17.5); LYMPH # 1.6 10^3/uL (1.5-5.0); LYMPH % 11.2 % (24.0-44.0); MEAN CORPUSCULAR HEMOGLOBIN 33.1 pg (27.0-33.0); MEAN CORPUSCULAR HGB CONC 31.3 g/dl (32.0-36.5); MEAN CORPUSCULAR VOLUME 105.6 fl (80.0-96.0); MONO # 1.3 10^3/uL (0.0-0.8); MONO % 9.1 % (2.0-8.0); NEUTROPHILS # 10.3 10^3/uL (1.5-8.5); NEUTROPHILS % 74.6 % (36.0-66.0); PLATELET COUNT, AUTOMATED 337 10^3/uL (150-450); RED BLOOD COUNT 2.69 10^6/uL (4.30-6.10); WHITE BLOOD COUNT 13.8 10^3/uL (4.0-10.0)
[2023-02-08 06:39] LABS: C REACTIVE PROTEIN QUANTITATIV 12.8 MG/DL (<1.0)
[2023-02-08 06:41] LABS: ALBUMIN 1.8 G/DL (3.2-5.2); BILIRUBIN,TOTAL 0.5 MG/DL (0.3-1.2); CREATININE FOR GFR 3.72 MG/DL (0.70-1.30); GLOMERULAR FILTRATION RATE 16.5 (>35); MAGNESIUM LEVEL 1.8 MG/DL (1.8-2.4); POTASSIUM SERUM 4.1 MMOL/L (3.5-5.1); TOTAL PROTEIN 5.7 G/DL (5.7-8.2)
[2023-02-08] MEDS ORDERED: DIGOXIN INJ 0.5 MG/2 ML AMP IV ONE (06:55)
[2023-02-08] MEDS: FOLIC ACID 1MG TAB PO SCH (08:51)
[2023-02-08] MEDS: allopurinoL 100 MG TAB PO SCH ×2 (08:51→20:17)
[2023-02-08] MEDS: CYANOCOBALAMIN 250 MCG TABLET PO SCH (08:51)
[2023-02-08] MEDS: ATORVASTATIN 20 MG TAB PO SCH (08:51)
[2023-02-08] MEDS: PANTOPRAZOLE 40MG TAB (PROTONIX) PO SCH (08:51)
[2023-02-08] MEDS: ASPIRIN 81MG ENTERIC TABLET PO SCH (08:51)
[2023-02-08] MEDS: ACETAMINOPHEN TAB 650MG DOSE (2X325MG) PO SCH ×2 (08:51→20:18)
[2023-02-08] MEDS: TAMSULOSIN 0.4 MG CAP PO SCH (08:51)
[2023-02-08] MEDS: APIXABAN 2.5 MG TAB (ELIQUIS) PO SCH ×2 (08:51→20:17)
[2023-02-08] MEDS: PIPERACILLIN/TAZOBACTAM SOD 4.5 GM in D5W MINI-BAG PLUS 50 ML IV SCH ×2 (11:19→23:23)
[2023-02-08] MEDS ORDERED: DIGOXIN 0.25 MG TAB PO SCH (13:00)
[2023-02-08] MEDS ORDERED: MAGNESIUM OXIDE 400MG TAB (MAG-OX) PO ONE (13:15)
[2023-02-08] MEDS: DIGOXIN 0.25 MG TAB PO SCH ×2 (13:20→18:48)
[2023-02-09] VITALS (7 sets, daily range): BP systolic 86–134; BP diastolic 52–63
[2023-02-09] MEDS ORDERED: HEPARIN 1,000UNITS/ML 10ML VIAL (FOR RADIOLOGY & DIALYSIS ONLY) IV PRN (01:15)
[2023-02-09] MEDS ORDERED: HEPARIN 1,000UNITS/ML 10ML VIAL (FOR RADIOLOGY & DIALYSIS ONLY) XX SCH (01:15)
[2023-02-09] MEDS ORDERED: SODIUM CHLORIDE 0.9% 1000ML IV PRN (01:15)
[2023-02-09] MEDS: FOLIC ACID 1MG TAB PO SCH ×2 (06:08→13:31)
[2023-02-09] MEDS: ACETAMINOPHEN TAB 650MG DOSE (2X325MG) PO SCH ×2 (06:09→21:49)
[2023-02-09] MEDS: allopurinoL 100 MG TAB PO SCH ×2 (06:09→21:48)
[2023-02-09 06:20] LABS: BASO # 0.1 10^3/uL (0.0-0.2); BASO % 0.8 % (0.0-1.0); EOS # 0.5 10^3/uL (0.0-0.5); EOS % 3.9 % (0.0-3.0); HEMATOCRIT 27.4 % (42.0-52.0); HEMOGLOBIN 8.8 g/dl (13.5-17.5); LYMPH # 1.4 10^3/uL (1.5-5.0); LYMPH % 10.6 % (24.0-44.0); MEAN CORPUSCULAR HEMOGLOBIN 34.1 pg (27.0-33.0); MEAN CORPUSCULAR HGB CONC 32.1 g/dl (32.0-36.5); MEAN CORPUSCULAR VOLUME 106.2 fl (80.0-96.0); MONO % 7.4 % (2.0-8.0); NEUTROPHILS # 10.1 10^3/uL (1.5-8.5); NEUTROPHILS % 75.8 % (36.0-66.0); PLATELET COUNT, AUTOMATED 325 10^3/uL (150-450); RED BLOOD COUNT 2.58 10^6/uL (4.30-6.10); WHITE BLOOD COUNT 13.3 10^3/uL (4.0-10.0)
[2023-02-09 06:49] LABS: C REACTIVE PROTEIN QUANTITATIV 11.7 MG/DL (<1.0)
[2023-02-09 06:55] LABS: ALBUMIN 1.7 G/DL (3.2-5.2); BILIRUBIN,TOTAL 0.4 MG/DL (0.3-1.2); CALCIUM LEVEL 9.3 MG/DL (8.3-10.6); CREATININE FOR GFR 5.17 MG/DL (0.70-1.30); GLOMERULAR FILTRATION RATE 11.3 (>35); MAGNESIUM LEVEL 2.2 MG/DL (1.8-2.4); POTASSIUM SERUM 4.4 MMOL/L (3.5-5.1); TOTAL PROTEIN 5.8 G/DL (5.7-8.2)
[2023-02-09] MEDS ORDERED: DESMOPRESSIN ACETATE IV ONE (07:00)
[2023-02-09] MEDS ORDERED: NS IV ONE (07:00)
[2023-02-09] MEDS: DARBEPOETIN 200MCG/0.4ML *DIALYSIS* SYRINGE IV SCH (09:26)
[2023-02-09] MEDS: TAMSULOSIN 0.4 MG CAP PO SCH (13:31)
[2023-02-09] MEDS: METOPROLOL TART 12.5 MG PER 1/2 TAB PO SCH ×3 (13:32→21:50)
[2023-02-09] MEDS: CYANOCOBALAMIN 250 MCG TABLET PO SCH (13:32)
[2023-02-09] MEDS: ATORVASTATIN 20 MG TAB PO SCH (13:33)
[2023-02-09] MEDS: ASPIRIN 81MG ENTERIC TABLET PO SCH (13:33)
[2023-02-09] MEDS: PIPERACILLIN/TAZOBACTAM SOD 4.5 GM in D5W MINI-BAG PLUS 50 ML IV SCH ×2 (13:33→23:23)
[2023-02-09] MEDS: PANTOPRAZOLE 40MG TAB (PROTONIX) PO SCH (13:37)
[2023-02-09] MEDS ORDERED: MIDODRINE 5 MG TAB PO ONE (18:30)
[2023-02-09] MEDS: PERCOCET 5MG/325MG TAB PO PRN (18:49)
[2023-02-10 03:42] VITALS: BP 136/87
[2023-02-10] MEDS ORDERED: CONJUGATED ESTROGENS 25 MG IV ONE (04:55)
[2023-02-10 07:44] VITALS: BP 124/57
[2023-02-10 08:26] LABS: BASO # 0.1 10^3/uL (0.0-0.2); BASO % 0.6 % (0.0-1.0); EOS # 0.3 10^3/uL (0.0-0.5); HEMATOCRIT 30.5 % (42.0-52.0); HEMOGLOBIN 9.9 g/dl (13.5-17.5); LYMPH # 1.2 10^3/uL (1.5-5.0); MEAN CORPUSCULAR HEMOGLOBIN 34.5 pg (27.0-33.0); MEAN CORPUSCULAR HGB CONC 32.5 g/dl (32.0-36.5); MEAN CORPUSCULAR VOLUME 106.3 fl (80.0-96.0); MONO # 0.8 10^3/uL (0.0-0.8); MONO % 5.7 % (2.0-8.0); NEUTROPHILS # 12.1 10^3/uL (1.5-8.5); NEUTROPHILS % 82.3 % (36.0-66.0); PLATELET COUNT, AUTOMATED 338 10^3/uL (150-450); RED BLOOD COUNT 2.87 10^6/uL (4.30-6.10); WHITE BLOOD COUNT 14.7 10^3/uL (4.0-10.0)
[2023-02-10] MEDS: ASPIRIN 81MG ENTERIC TABLET PO SCH (08:59)
[2023-02-10] MEDS: METOPROLOL TART 12.5 MG PER 1/2 TAB PO SCH ×3 (08:59→20:40)
[2023-02-10 09:00] LABS: C REACTIVE PROTEIN QUANTITATIV 14.1 MG/DL (<1.0)
[2023-02-10] MEDS: ACETAMINOPHEN TAB 650MG DOSE (2X325MG) PO SCH ×2 (09:00→20:39)
[2023-02-10] MEDS: DIGOXIN 0.0625MG PER 1/2TABLET PO SCH (09:01)
[2023-02-10 09:02] LABS: BILIRUBIN,TOTAL 0.6 MG/DL (0.3-1.2); CALCIUM LEVEL 9.7 MG/DL (8.3-10.6); CREATININE FOR GFR 3.14 MG/DL (0.70-1.30); MAGNESIUM LEVEL 2.1 MG/DL (1.8-2.4); TOTAL PROTEIN 6.9 G/DL (5.7-8.2)
[2023-02-10] MEDS: PANTOPRAZOLE 40MG TAB (PROTONIX) PO SCH (09:02)
[2023-02-10] MEDS: CYANOCOBALAMIN 250 MCG TABLET PO SCH (09:02)
[2023-02-10] MEDS: ATORVASTATIN 20 MG TAB PO SCH (09:02)
[2023-02-10] MEDS: TAMSULOSIN 0.4 MG CAP PO SCH (09:02)
[2023-02-10] MEDS: allopurinoL 100 MG TAB PO SCH ×2 (09:03→20:39)
[2023-02-10 11:45] VITALS: BP 140/60
[2023-02-10] MEDS: PIPERACILLIN/TAZOBACTAM SOD 4.5 GM in D5W MINI-BAG PLUS 50 ML IV SCH ×2 (13:53→23:41)
[2023-02-10 15:24] VITALS: BP 122/62
[2023-02-10 20:00] VITALS: BP 98/60
[2023-02-11] VITALS (7 sets, daily range): BP systolic 111–135; BP diastolic 51–63
[2023-02-11 07:03] LABS: BASO # 0.1 10^3/uL (0.0-0.2); BASO % 0.4 % (0.0-1.0); EOS # 0.1 10^3/uL (0.0-0.5); EOS % 0.7 % (0.0-3.0); HEMATOCRIT 28.8 % (42.0-52.0); HEMOGLOBIN 9.1 g/dl (13.5-17.5); LYMPH % 4.7 % (24.0-44.0); MEAN CORPUSCULAR HEMOGLOBIN 33.5 pg (27.0-33.0); MEAN CORPUSCULAR HGB CONC 31.6 g/dl (32.0-36.5); MEAN CORPUSCULAR VOLUME 105.9 fl (80.0-96.0); MONO # 0.8 10^3/uL (0.0-0.8); MONO % 3.6 % (2.0-8.0); NEUTROPHILS # 18.8 10^3/uL (1.5-8.5); NEUTROPHILS % 89.6 % (36.0-66.0); PLATELET COUNT, AUTOMATED 353 10^3/uL (150-450); RED BLOOD COUNT 2.72 10^6/uL (4.30-6.10)
[2023-02-11 07:33] LABS: C REACTIVE PROTEIN QUANTITATIV 11.5 MG/DL (<1.0)
[2023-02-11 07:35] LABS: ALBUMIN 1.9 G/DL (3.2-5.2); BILIRUBIN,TOTAL 0.5 MG/DL (0.3-1.2); CALCIUM LEVEL 9.4 MG/DL (8.3-10.6); CREATININE FOR GFR 4.58 MG/DL (0.70-1.30); MAGNESIUM LEVEL 2.2 MG/DL (1.8-2.4); POTASSIUM SERUM 5.3 MMOL/L (3.5-5.1); TOTAL PROTEIN 6.7 G/DL (5.7-8.2)
[2023-02-11] MEDS: METOPROLOL TART 12.5 MG PER 1/2 TAB PO SCH ×3 (08:25→20:03)
[2023-02-11] MEDS: ASPIRIN 81MG ENTERIC TABLET PO SCH (08:25)
[2023-02-11] MEDS: ACETAMINOPHEN TAB 650MG DOSE (2X325MG) PO SCH ×2 (08:25→20:04)
[2023-02-11] MEDS: TAMSULOSIN 0.4 MG CAP PO SCH (08:26)
[2023-02-11] MEDS: FOLIC ACID 1MG TAB PO SCH (08:26)
[2023-02-11] MEDS: PANTOPRAZOLE 40MG TAB (PROTONIX) PO SCH (08:26)
[2023-02-11] MEDS: CYANOCOBALAMIN 250 MCG TABLET PO SCH (08:26)
[2023-02-11] MEDS: allopurinoL 100 MG TAB PO SCH ×2 (08:26→20:04)
[2023-02-11] MEDS: ATORVASTATIN 20 MG TAB PO SCH (08:26)
[2023-02-11] MEDS: PIPERACILLIN/TAZOBACTAM SOD 4.5 GM in D5W MINI-BAG PLUS 50 ML IV SCH ×2 (10:49→23:54)
[2023-02-11] MEDS ORDERED: PATIROMER SORBITEX CALCIUM 8.4 GM POWDER PACKET (VELTASSA) PO SCH (12:00)
[2023-02-11] MEDS: PERCOCET 5MG/325MG TAB PO PRN (20:04)
[2023-02-12] MEDS: FOLIC ACID 1MG TAB PO SCH (05:30)
[2023-02-12] MEDS: allopurinoL 100 MG TAB PO SCH ×2 (05:30→20:34)
[2023-02-12] MEDS: ASPIRIN 81MG ENTERIC TABLET PO SCH (05:30)
[2023-02-12] MEDS: ACETAMINOPHEN TAB 650MG DOSE (2X325MG) PO SCH ×2 (05:30→20:34)
[2023-02-12] MEDS: CYANOCOBALAMIN 250 MCG TABLET PO SCH (05:30)
[2023-02-12] MEDS ORDERED: HEPARIN 1,000UNITS/ML 10ML VIAL (FOR RADIOLOGY & DIALYSIS ONLY) IV PRN (06:00)
[2023-02-12] MEDS ORDERED: SODIUM CHLORIDE 0.9% 1000ML IV PRN (06:00)
[2023-02-12] MEDS ORDERED: HEPARIN 1,000UNITS/ML 10ML VIAL (FOR RADIOLOGY & DIALYSIS ONLY) XX SCH (06:00)
[2023-02-12 06:14] LABS: BASO # 0.1 10^3/uL (0.0-0.2); BASO % 0.7 % (0.0-1.0); EOS # 0.3 10^3/uL (0.0-0.5); EOS % 1.4 % (0.0-3.0); HEMATOCRIT 30.1 % (42.0-52.0); HEMOGLOBIN 9.6 g/dl (13.5-17.5); LYMPH # 1.2 10^3/uL (1.5-5.0); LYMPH % 5.9 % (24.0-44.0); MEAN CORPUSCULAR HEMOGLOBIN 34.4 pg (27.0-33.0); MEAN CORPUSCULAR HGB CONC 31.9 g/dl (32.0-36.5); MEAN CORPUSCULAR VOLUME 107.9 fl (80.0-96.0); MONO % 5.1 % (2.0-8.0); NEUTROPHILS # 17.6 10^3/uL (1.5-8.5); NEUTROPHILS % 86.1 % (36.0-66.0); PLATELET COUNT, AUTOMATED 345 10^3/uL (150-450); RED BLOOD COUNT 2.79 10^6/uL (4.30-6.10); WHITE BLOOD COUNT 20.4 10^3/uL (4.0-10.0)
[2023-02-12 06:41] LABS: C REACTIVE PROTEIN QUANTITATIV 9.9 MG/DL (<1.0)
[2023-02-12 06:56] LABS: ALBUMIN 1.9 G/DL (3.2-5.2); BILIRUBIN,TOTAL 0.4 MG/DL (0.3-1.2); CALCIUM LEVEL 9.6 MG/DL (8.3-10.6); CREATININE FOR GFR 5.74 MG/DL (0.70-1.30); MAGNESIUM LEVEL 2.2 MG/DL (1.8-2.4); POTASSIUM SERUM 5.6 MMOL/L (3.5-5.1); TOTAL PROTEIN 6.4 G/DL (5.7-8.2)
[2023-02-12 07:37] VITALS: BP 116/57
[2023-02-12] MEDS: METOPROLOL TART 12.5 MG PER 1/2 TAB PO SCH ×3 (08:22→20:35)
[2023-02-12] MEDS: TAMSULOSIN 0.4 MG CAP PO SCH (08:22)
[2023-02-12] MEDS: PANTOPRAZOLE 40MG TAB (PROTONIX) PO SCH (08:22)
[2023-02-12] MEDS: ATORVASTATIN 20 MG TAB PO SCH (08:22)
[2023-02-12] MEDS: MIRALAX *UNIT DOSE* 17GM PACKET PO SCH (09:00)
[2023-02-12] MEDS: PIPERACILLIN/TAZOBACTAM SOD 4.5 GM in D5W MINI-BAG PLUS 50 ML IV SCH ×2 (11:07→17:22)
[2023-02-12 12:39] VITALS: BP 110/53
[2023-02-12 17:12] VITALS: BP 100/57
[2023-02-12 20:00] VITALS: BP 126/60
[2023-02-12] MEDS: PERCOCET 5MG/325MG TAB PO PRN (20:34)
[2023-02-12 23:59] VITALS: BP 120/63
[2023-02-13 04:00] VITALS: BP 125/71
[2023-02-13] MEDS: PIPERACILLIN/TAZOBACTAM SOD 4.5 GM in D5W MINI-BAG PLUS 50 ML IV SCH ×2 (05:18→16:00)
[2023-02-13 05:59] LABS: BASO # 0.1 10^3/uL (0.0-0.2); BASO % 0.5 % (0.0-1.0); EOS # 0.2 10^3/uL (0.0-0.5); EOS % 1.2 % (0.0-3.0); HEMATOCRIT 28.1 % (42.0-52.0); HEMOGLOBIN 8.9 g/dl (13.5-17.5); LYMPH % 6.1 % (24.0-44.0); MEAN CORPUSCULAR HEMOGLOBIN 33.8 pg (27.0-33.0); MEAN CORPUSCULAR HGB CONC 31.7 g/dl (32.0-36.5); MEAN CORPUSCULAR VOLUME 106.8 fl (80.0-96.0); MONO # 0.9 10^3/uL (0.0-0.8); MONO % 5.5 % (2.0-8.0); NEUTROPHILS # 14.3 10^3/uL (1.5-8.5); PLATELET COUNT, AUTOMATED 331 10^3/uL (150-450); RED BLOOD COUNT 2.63 10^6/uL (4.30-6.10); WHITE BLOOD COUNT 16.7 10^3/uL (4.0-10.0)
[2023-02-13 06:24] LABS: C REACTIVE PROTEIN QUANTITATIV 10.4 MG/DL (<1.0)
[2023-02-13 06:28] LABS: CALCIUM LEVEL 8.6 MG/DL (8.3-10.6); CREATININE FOR GFR 3.4 MG/DL (0.70-1.30); GLOMERULAR FILTRATION RATE 18.3 (>35); POTASSIUM SERUM 4.2 MMOL/L (3.5-5.1)
[2023-02-13 07:28] VITALS: BP 125/60
[2023-02-13] MEDS: MIRALAX *UNIT DOSE* 17GM PACKET PO SCH (09:00)
[2023-02-13] MEDS: PANTOPRAZOLE 40MG TAB (PROTONIX) PO SCH (09:39)
[2023-02-13] MEDS: FOLIC ACID 1MG TAB PO SCH (09:40)
[2023-02-13] MEDS: ASPIRIN 81MG ENTERIC TABLET PO SCH (09:40)
[2023-02-13] MEDS: DIGOXIN 0.0625MG PER 1/2TABLET PO SCH (09:40)
[2023-02-13] MEDS: ATORVASTATIN 20 MG TAB PO SCH (09:40)
[2023-02-13] MEDS: CYANOCOBALAMIN 250 MCG TABLET PO SCH (09:40)
[2023-02-13] MEDS: METOPROLOL TART 12.5 MG PER 1/2 TAB PO SCH ×3 (09:40→20:55)
[2023-02-13] MEDS: ACETAMINOPHEN TAB 650MG DOSE (2X325MG) PO SCH ×2 (09:40→20:54)
[2023-02-13] MEDS: allopurinoL 100 MG TAB PO SCH ×2 (09:41→20:55)
[2023-02-13] MEDS: TAMSULOSIN 0.4 MG CAP PO SCH (09:41)
[2023-02-13] MEDS: PERCOCET 5MG/325MG TAB PO PRN (12:03)
[2023-02-13 12:10] VITALS: BP 107/51
[2023-02-13 15:54] VITALS: BP 119/57
[2023-02-13] MEDS: LACTOBACILLUS ACIDOPHILUS CAP (BACID) PO SCH (18:38)
[2023-02-14] MEDS: PIPERACILLIN/TAZOBACTAM SOD 4.5 GM in D5W MINI-BAG PLUS 50 ML IV SCH ×2 (05:44→18:02)
[2023-02-14] MEDS ORDERED: HEPARIN 1,000UNITS/ML 10ML VIAL (FOR RADIOLOGY & DIALYSIS ONLY) XX SCH (06:00)
[2023-02-14] MEDS ORDERED: HEPARIN 1,000UNITS/ML 10ML VIAL (FOR RADIOLOGY & DIALYSIS ONLY) IV PRN (06:00)
[2023-02-14] MEDS ORDERED: SODIUM CHLORIDE 0.9% 1000ML IV PRN (06:00)
[2023-02-14] MEDS: allopurinoL 100 MG TAB PO SCH ×2 (06:17→21:54)
[2023-02-14] MEDS: FOLIC ACID 1MG TAB PO SCH (06:17)
[2023-02-14] MEDS: ASPIRIN 81MG ENTERIC TABLET PO SCH (06:17)
[2023-02-14 06:19] LABS: BASO # 0.1 10^3/uL (0.0-0.2); BASO % 0.7 % (0.0-1.0); EOS # 0.3 10^3/uL (0.0-0.5); EOS % 1.7 % (0.0-3.0); HEMATOCRIT 28.6 % (42.0-52.0); HEMOGLOBIN 8.9 g/dl (13.5-17.5); LYMPH # 0.7 10^3/uL (1.5-5.0); LYMPH % 4.6 % (24.0-44.0); MEAN CORPUSCULAR HEMOGLOBIN 33.3 pg (27.0-33.0); MEAN CORPUSCULAR HGB CONC 31.1 g/dl (32.0-36.5); MEAN CORPUSCULAR VOLUME 107.1 fl (80.0-96.0); NEUTROPHILS # 12.7 10^3/uL (1.5-8.5); PLATELET COUNT, AUTOMATED 325 10^3/uL (150-450); RED BLOOD COUNT 2.67 10^6/uL (4.30-6.10); WHITE BLOOD COUNT 14.9 10^3/uL (4.0-10.0)
[2023-02-14 06:43] LABS: C REACTIVE PROTEIN QUANTITATIV 12.8 MG/DL (<1.0)
[2023-02-14 06:47] LABS: CALCIUM LEVEL 9.1 MG/DL (8.3-10.6); CREATININE FOR GFR 4.86 MG/DL (0.70-1.30); GLOMERULAR FILTRATION RATE 12.1 (>35); POTASSIUM SERUM 4.7 MMOL/L (3.5-5.1)
[2023-02-14 07:43] VITALS: BP 121/58
[2023-02-14] MEDS: LACTOBACILLUS ACIDOPHILUS CAP (BACID) PO SCH ×3 (08:00→18:02)
[2023-02-14] MEDS: MIRALAX *UNIT DOSE* 17GM PACKET PO SCH (09:00)
[2023-02-14] MEDS: METOPROLOL TART 12.5 MG PER 1/2 TAB PO SCH ×3 (09:00→21:00)
[2023-02-14 12:30] VITALS: BP 118/48
[2023-02-14] MEDS: ACETAMINOPHEN TAB 650MG DOSE (2X325MG) PO SCH ×2 (12:43→21:55)
[2023-02-14] MEDS: ATORVASTATIN 20 MG TAB PO SCH (12:43)
[2023-02-14] MEDS: PANTOPRAZOLE 40MG TAB (PROTONIX) PO SCH (12:43)
[2023-02-14] MEDS: TAMSULOSIN 0.4 MG CAP PO SCH (12:43)
[2023-02-14] MEDS: CYANOCOBALAMIN 250 MCG TABLET PO SCH (12:43)
[2023-02-14 21:08] VITALS: BP 88/42
[2023-02-14] MEDS ORDERED: SODIUM CHLORIDE 0.9% 1000ML IV ONE ×2 (21:50)
[2023-02-14 22:30] VITALS: BP 110/64
[2023-02-14 23:59] VITALS: BP 118/59
[2023-02-15] VITALS (7 sets, daily range): BP systolic 94–134; BP diastolic 48–63
[2023-02-15] MEDS ORDERED: METOPROLOL TART 12.5 MG PER 1/2 TAB PO ONE (02:00)
[2023-02-15] MEDS: PIPERACILLIN/TAZOBACTAM SOD 4.5 GM in D5W MINI-BAG PLUS 50 ML IV SCH (06:19)
[2023-02-15 06:46] LABS: BASO # 0.1 10^3/uL (0.0-0.2); BASO % 0.5 % (0.0-1.0); EOS # 0.2 10^3/uL (0.0-0.5); EOS % 1.9 % (0.0-3.0); HEMATOCRIT 28.4 % (42.0-52.0); LYMPH # 0.6 10^3/uL (1.5-5.0); LYMPH % 5.7 % (24.0-44.0); MEAN CORPUSCULAR HEMOGLOBIN 33.8 pg (27.0-33.0); MEAN CORPUSCULAR HGB CONC 31.7 g/dl (32.0-36.5); MEAN CORPUSCULAR VOLUME 106.8 fl (80.0-96.0); NEUTROPHILS # 9.1 10^3/uL (1.5-8.5); NEUTROPHILS % 82.3 % (36.0-66.0); PLATELET COUNT, AUTOMATED 315 10^3/uL (150-450); RED BLOOD COUNT 2.66 10^6/uL (4.30-6.10); WHITE BLOOD COUNT 11.1 10^3/uL (4.0-10.0)
[2023-02-15 07:59] LABS: CLOSTRIDIUM DIFFICILE PCR POSITIVE (NEGATIVE)
[2023-02-15] MEDS ORDERED: VANCOMYCIN HCL 750 MG, VIAL MATE ADAPTER 1 EACH in D5W 250 ML IV ONE ×2 (09:00→10:00)
[2023-02-15] MEDS ORDERED: CHOLESTYRAMINE 4GM PWD PKT PO SCH (09:00)
[2023-02-15] MEDS ORDERED: METOPROLOL TART 12.5 MG PER 1/2 TAB PO SCH (09:00)
[2023-02-15 09:14] LABS: C REACTIVE PROTEIN QUANTITATIV 10.4 MG/DL (<1.0)
[2023-02-15 09:19] LABS: CALCIUM LEVEL 8.9 MG/DL (8.3-10.6); CREATININE FOR GFR 3.08 MG/DL (0.70-1.30); GLOMERULAR FILTRATION RATE 20.5 (>35); POTASSIUM SERUM 3.6 MMOL/L (3.5-5.1)
[2023-02-15] MEDS: DIGOXIN 0.0625MG PER 1/2TABLET PO SCH (09:29)
[2023-02-15] MEDS: TAMSULOSIN 0.4 MG CAP PO SCH (09:29)
[2023-02-15] MEDS: FIDAXOMICIN 200 MG TAB (DIFICID) PO SCH ×2 (09:29→20:20)
[2023-02-15] MEDS: ASPIRIN 81MG ENTERIC TABLET PO SCH (09:29)
[2023-02-15] MEDS: PANTOPRAZOLE 40MG TAB (PROTONIX) PO SCH (09:29)
[2023-02-15] MEDS: LACTOBACILLUS ACIDOPHILUS CAP (BACID) PO SCH ×3 (09:30→18:02)
[2023-02-15] MEDS: ACETAMINOPHEN TAB 650MG DOSE (2X325MG) PO SCH ×2 (09:30→20:20)
[2023-02-15] MEDS: FOLIC ACID 1MG TAB PO SCH (09:30)
[2023-02-15] MEDS: CYANOCOBALAMIN 250 MCG TABLET PO SCH (09:30)
[2023-02-15] MEDS: allopurinoL 100 MG TAB PO SCH ×2 (09:30→20:20)
[2023-02-15] MEDS: ATORVASTATIN 20 MG TAB PO SCH (09:30)
[2023-02-15] MEDS ORDERED: NS 1,000 ML IV ONE (16:50)
[2023-02-15] MEDS: METOPROLOL TART 12.5 MG PER 1/2 TAB PO SCH ×2 (18:36→21:24)
[2023-02-16 01:18] VITALS: BP 110/68
[2023-02-16] MEDS: FIDAXOMICIN 200 MG TAB (DIFICID) PO SCH ×2 (05:33→21:32)
[2023-02-16] MEDS: LACTOBACILLUS ACIDOPHILUS CAP (BACID) PO SCH ×3 (05:33→17:01)
[2023-02-16] MEDS: ASPIRIN 81MG ENTERIC TABLET PO SCH (05:33)
[2023-02-16] MEDS: CYANOCOBALAMIN 250 MCG TABLET PO SCH (05:34)
[2023-02-16] MEDS: ATORVASTATIN 20 MG TAB PO SCH (05:34)
[2023-02-16] MEDS: allopurinoL 100 MG TAB PO SCH ×2 (05:34→21:32)
[2023-02-16] MEDS: TAMSULOSIN 0.4 MG CAP PO SCH (05:34)
[2023-02-16] MEDS: FOLIC ACID 1MG TAB PO SCH (05:34)
[2023-02-16] MEDS: PERCOCET 5MG/325MG TAB PO PRN ×2 (05:34→12:43)
[2023-02-16] MEDS: PANTOPRAZOLE 40MG TAB (PROTONIX) PO SCH (05:34)
[2023-02-16] MEDS: ACETAMINOPHEN TAB 650MG DOSE (2X325MG) PO SCH ×2 (05:35→21:33)
[2023-02-16] MEDS: METOPROLOL TART 12.5 MG PER 1/2 TAB PO SCH ×3 (05:42→21:32)
[2023-02-16] MEDS ORDERED: HEPARIN 1,000UNITS/ML 10ML VIAL (FOR RADIOLOGY & DIALYSIS ONLY) XX SCH (06:00)
[2023-02-16] MEDS ORDERED: SODIUM CHLORIDE 0.9% 1000ML IV PRN (06:00)
[2023-02-16] MEDS ORDERED: HEPARIN 1,000UNITS/ML 10ML VIAL (FOR RADIOLOGY & DIALYSIS ONLY) IV PRN (06:00)
[2023-02-16 07:18] VITALS: BP 132/60
[2023-02-16] MEDS ORDERED: METOPROLOL TART 12.5 MG PER 1/2 TAB PO ONE (07:25)
[2023-02-16 07:32] LABS: BASO # 0.1 10^3/uL (0.0-0.2); BASO % 0.8 % (0.0-1.0); EOS # 0.3 10^3/uL (0.0-0.5); EOS % 3.1 % (0.0-3.0); HEMATOCRIT 27.8 % (42.0-52.0); HEMOGLOBIN 8.9 g/dl (13.5-17.5); LYMPH # 0.7 10^3/uL (1.5-5.0); LYMPH % 7.7 % (24.0-44.0); MEAN CORPUSCULAR HEMOGLOBIN 33.7 pg (27.0-33.0); MEAN CORPUSCULAR VOLUME 105.3 fl (80.0-96.0); MONO # 0.9 10^3/uL (0.0-0.8); MONO % 10.2 % (2.0-8.0); NEUTROPHILS # 6.5 10^3/uL (1.5-8.5); NEUTROPHILS % 77.7 % (36.0-66.0); PLATELET COUNT, AUTOMATED 292 10^3/uL (150-450); RED BLOOD COUNT 2.64 10^6/uL (4.30-6.10); WHITE BLOOD COUNT 8.4 10^3/uL (4.0-10.0)
[2023-02-16 08:01] LABS: C REACTIVE PROTEIN QUANTITATIV 8.9 MG/DL (<1.0)
[2023-02-16 08:06] LABS: CALCIUM LEVEL 8.3 MG/DL (8.3-10.6); CREATININE FOR GFR 4.36 MG/DL (0.70-1.30); GLOMERULAR FILTRATION RATE 13.7 (>35); POTASSIUM SERUM 3.5 MMOL/L (3.5-5.1)
[2023-02-16] MEDS: DARBEPOETIN 200MCG/0.4ML *DIALYSIS* SYRINGE IV SCH (08:31)
[2023-02-16 12:38] VITALS: BP 130/58
[2023-02-16 14:00] VITALS: BP 108/50
[2023-02-16 17:01] VITALS: BP 112/48
[2023-02-16] MEDS: VANCOMYCIN HCL 1,000 MG, VIAL MATE ADAPTER 1 EACH in D5W 250 ML IV SCH (17:02)
[2023-02-16 21:00] VITALS: BP 114/59
[2023-02-16] MEDS: LIDOCAINE 5% (LIDODERM) PATCH TD PRN (21:33)
[2023-02-17 02:00] VITALS: BP 116/59
[2023-02-17 05:52] VITALS: BP 118/60
[2023-02-17 06:35] LABS: BASO # 0.1 10^3/uL (0.0-0.2); BASO % 0.8 % (0.0-1.0); EOS # 0.2 10^3/uL (0.0-0.5); EOS % 2.7 % (0.0-3.0); HEMOGLOBIN 8.2 g/dl (13.5-17.5); LYMPH # 0.9 10^3/uL (1.5-5.0); LYMPH % 11.2 % (24.0-44.0); MEAN CORPUSCULAR HEMOGLOBIN 33.5 pg (27.0-33.0); MEAN CORPUSCULAR HGB CONC 31.5 g/dl (32.0-36.5); MEAN CORPUSCULAR VOLUME 106.1 fl (80.0-96.0); MONO % 12.9 % (2.0-8.0); NEUTROPHILS # 5.6 10^3/uL (1.5-8.5); NEUTROPHILS % 71.6 % (36.0-66.0); PLATELET COUNT, AUTOMATED 295 10^3/uL (150-450); RED BLOOD COUNT 2.45 10^6/uL (4.30-6.10); WHITE BLOOD COUNT 7.8 10^3/uL (4.0-10.0)
[2023-02-17 07:03] LABS: C REACTIVE PROTEIN QUANTITATIV 7.5 MG/DL (<1.0); VANCOMYCIN RANDOM 22.9 UG/ML
[2023-02-17 07:05] LABS: CALCIUM LEVEL 8.6 MG/DL (8.3-10.6); CREATININE FOR GFR 2.74 MG/DL (0.70-1.30); GLOMERULAR FILTRATION RATE 23.5 (>35); POTASSIUM SERUM 3.7 MMOL/L (3.5-5.1)
[2023-02-17] MEDS: ASPIRIN 81MG ENTERIC TABLET PO SCH (08:11)
[2023-02-17] MEDS: LACTOBACILLUS ACIDOPHILUS CAP (BACID) PO SCH ×3 (08:11→17:22)
[2023-02-17] MEDS: METOPROLOL TART 12.5 MG PER 1/2 TAB PO SCH ×3 (08:11→21:44)
[2023-02-17] MEDS: ACETAMINOPHEN TAB 650MG DOSE (2X325MG) PO SCH ×2 (08:11→21:42)
[2023-02-17] MEDS: allopurinoL 100 MG TAB PO SCH ×2 (08:12→21:42)
[2023-02-17] MEDS: FIDAXOMICIN 200 MG TAB (DIFICID) PO SCH ×2 (08:12→21:41)
[2023-02-17] MEDS: DIGOXIN 0.0625MG PER 1/2TABLET PO SCH (08:12)
[2023-02-17] MEDS: ATORVASTATIN 20 MG TAB PO SCH (08:12)
[2023-02-17] MEDS: CYANOCOBALAMIN 250 MCG TABLET PO SCH (08:12)
[2023-02-17] MEDS: TAMSULOSIN 0.4 MG CAP PO SCH (08:12)
[2023-02-17] MEDS: FOLIC ACID 1MG TAB PO SCH (08:12)
[2023-02-17] MEDS: PANTOPRAZOLE 40MG TAB (PROTONIX) PO SCH (08:12)
[2023-02-17 16:47] VITALS: BP 127/64
[2023-02-17 20:00] VITALS: BP 130/60
[2023-02-17] MEDS: LIDOCAINE 5% (LIDODERM) PATCH TD PRN (21:42)
[2023-02-18 06:00] VITALS: BP 132/87
[2023-02-18] MEDS: METOPROLOL TART 12.5 MG PER 1/2 TAB PO SCH ×3 (10:02→20:59)
[2023-02-18] MEDS: FIDAXOMICIN 200 MG TAB (DIFICID) PO SCH ×2 (10:03→20:55)
[2023-02-18] MEDS: ACETAMINOPHEN TAB 650MG DOSE (2X325MG) PO SCH ×2 (10:03→20:56)
[2023-02-18] MEDS: LACTOBACILLUS ACIDOPHILUS CAP (BACID) PO SCH ×3 (10:03→17:31)
[2023-02-18] MEDS: ASPIRIN 81MG ENTERIC TABLET PO SCH (10:03)
[2023-02-18] MEDS: FOLIC ACID 1MG TAB PO SCH (10:04)
[2023-02-18] MEDS: allopurinoL 100 MG TAB PO SCH ×2 (10:04→20:55)
[2023-02-18] MEDS: PANTOPRAZOLE 40MG TAB (PROTONIX) PO SCH (10:04)
[2023-02-18] MEDS: CYANOCOBALAMIN 250 MCG TABLET PO SCH (10:04)
[2023-02-18] MEDS: TAMSULOSIN 0.4 MG CAP PO SCH (10:04)
[2023-02-18] MEDS: ATORVASTATIN 20 MG TAB PO SCH (10:04)
[2023-02-18 20:07] VITALS: BP 136/72
[2023-02-18] MEDS: LIDOCAINE 5% (LIDODERM) PATCH TD PRN (20:56)
[2023-02-19] MEDS: PERCOCET 5MG/325MG TAB PO PRN ×2 (00:39→17:57)
[2023-02-19 05:40] VITALS: BP 150/72
[2023-02-19] MEDS: FIDAXOMICIN 200 MG TAB (DIFICID) PO SCH ×2 (06:18→20:27)
[2023-02-19] MEDS: LACTOBACILLUS ACIDOPHILUS CAP (BACID) PO SCH ×3 (06:18→17:57)
[2023-02-19] MEDS: FOLIC ACID 1MG TAB PO SCH (06:18)
[2023-02-19] MEDS: ATORVASTATIN 20 MG TAB PO SCH (06:18)
[2023-02-19] MEDS: ASPIRIN 81MG ENTERIC TABLET PO SCH (06:18)
[2023-02-19] MEDS: TAMSULOSIN 0.4 MG CAP PO SCH (06:18)
[2023-02-19] MEDS: CYANOCOBALAMIN 250 MCG TABLET PO SCH (06:19)
[2023-02-19] MEDS: PANTOPRAZOLE 40MG TAB (PROTONIX) PO SCH (06:19)
[2023-02-19] MEDS: METOPROLOL TART 12.5 MG PER 1/2 TAB PO SCH ×3 (06:19→20:26)
[2023-02-19] MEDS: allopurinoL 100 MG TAB PO SCH ×2 (06:19→20:29)
[2023-02-19] MEDS: ACETAMINOPHEN TAB 650MG DOSE (2X325MG) PO SCH ×2 (06:19→20:27)
[2023-02-19 06:44] LABS: BASO # 0.1 10^3/uL (0.0-0.2); BASO % 0.8 % (0.0-1.0); EOS # 0.3 10^3/uL (0.0-0.5); HEMATOCRIT 29.1 % (42.0-52.0); LYMPH % 11.8 % (24.0-44.0); MEAN CORPUSCULAR HEMOGLOBIN 33.1 pg (27.0-33.0); MEAN CORPUSCULAR HGB CONC 30.9 g/dl (32.0-36.5); MONO # 0.9 10^3/uL (0.0-0.8); MONO % 10.8 % (2.0-8.0); NEUTROPHILS # 6.3 10^3/uL (1.5-8.5); NEUTROPHILS % 72.9 % (36.0-66.0); PLATELET COUNT, AUTOMATED 303 10^3/uL (150-450); RED BLOOD COUNT 2.72 10^6/uL (4.30-6.10); WHITE BLOOD COUNT 8.7 10^3/uL (4.0-10.0)
[2023-02-19 07:15] LABS: C REACTIVE PROTEIN QUANTITATIV 15.1 MG/DL (<1.0)
[2023-02-19 07:17] LABS: CALCIUM LEVEL 8.9 MG/DL (8.3-10.6); CREATININE FOR GFR 4.94 MG/DL (0.70-1.30); GLOMERULAR FILTRATION RATE 11.9 (>35); MAGNESIUM LEVEL 1.8 MG/DL (1.8-2.4); POTASSIUM SERUM 5.3 MMOL/L (3.5-5.1)
[2023-02-19] MEDS ORDERED: HEPARIN 1,000UNITS/ML 10ML VIAL (FOR RADIOLOGY & DIALYSIS ONLY) IV PRN (08:00)
[2023-02-19] MEDS ORDERED: SODIUM CHLORIDE 0.9% 1000ML IV PRN (08:00)
[2023-02-19] MEDS ORDERED: HEPARIN 1,000UNITS/ML 10ML VIAL (FOR RADIOLOGY & DIALYSIS ONLY) XX SCH (08:00)
[2023-02-19 08:34] LABS: VANCOMYCIN RANDOM 17.9 UG/ML
[2023-02-19 17:35] VITALS: BP 146/69
[2023-02-19] MEDS: VANCOMYCIN HCL 1,000 MG, VIAL MATE ADAPTER 1 EACH in D5W 250 ML IV SCH (17:59)
[2023-02-20 06:07] VITALS: BP 143/67
[2023-02-20 06:32] LABS: BASO # 0.1 10^3/uL (0.0-0.2); BASO % 0.8 % (0.0-1.0); EOS # 0.2 10^3/uL (0.0-0.5); EOS % 2.7 % (0.0-3.0); HEMATOCRIT 29.1 % (42.0-52.0); HEMOGLOBIN 9.3 g/dl (13.5-17.5); LYMPH # 0.7 10^3/uL (1.5-5.0); LYMPH % 7.8 % (24.0-44.0); MEAN CORPUSCULAR HEMOGLOBIN 34.1 pg (27.0-33.0); MEAN CORPUSCULAR VOLUME 106.6 fl (80.0-96.0); MONO % 10.9 % (2.0-8.0); NEUTROPHILS # 6.8 10^3/uL (1.5-8.5); NEUTROPHILS % 76.9 % (36.0-66.0); PLATELET COUNT, AUTOMATED 336 10^3/uL (150-450); RED BLOOD COUNT 2.73 10^6/uL (4.30-6.10); WHITE BLOOD COUNT 8.8 10^3/uL (4.0-10.0)
[2023-02-20 07:04] LABS: CALCIUM LEVEL 9.1 MG/DL (8.3-10.6); CREATININE FOR GFR 2.98 MG/DL (0.70-1.30); GLOMERULAR FILTRATION RATE 21.3 (>35); MAGNESIUM LEVEL 1.8 MG/DL (1.8-2.4); POTASSIUM SERUM 4.5 MMOL/L (3.5-5.1)
[2023-02-20] MEDS: FIDAXOMICIN 200 MG TAB (DIFICID) PO SCH ×2 (09:04→20:15)
[2023-02-20] MEDS: allopurinoL 100 MG TAB PO SCH ×2 (09:04→20:15)
[2023-02-20] MEDS: PANTOPRAZOLE 40MG TAB (PROTONIX) PO SCH (09:04)
[2023-02-20] MEDS: ATORVASTATIN 20 MG TAB PO SCH (09:04)
[2023-02-20] MEDS: DIGOXIN 0.0625MG PER 1/2TABLET PO SCH (09:04)
[2023-02-20] MEDS: CYANOCOBALAMIN 250 MCG TABLET PO SCH (09:04)
[2023-02-20] MEDS: TAMSULOSIN 0.4 MG CAP PO SCH (09:04)
[2023-02-20] MEDS: ASPIRIN 81MG ENTERIC TABLET PO SCH (09:05)
[2023-02-20] MEDS: LACTOBACILLUS ACIDOPHILUS CAP (BACID) PO SCH ×3 (09:05→18:06)
[2023-02-20] MEDS: FOLIC ACID 1MG TAB PO SCH (09:05)
[2023-02-20] MEDS: METOPROLOL TART 12.5 MG PER 1/2 TAB PO SCH ×3 (09:05→20:15)
[2023-02-20] MEDS: ACETAMINOPHEN TAB 650MG DOSE (2X325MG) PO SCH ×2 (09:06→20:13)
[2023-02-20] MEDS ORDERED: LIDOCAINE 1% MDV 20ML VIAL As Ordered ONE (13:59)
[2023-02-20 15:18] LABS: SOURCE, BODY FLUID LFT KNEE
[2023-02-20 15:19] LABS: SYNOVIAL FLUID COLOR PINK (COLORLESS)
[2023-02-20 15:32] LABS: CRYSTALS, BODY FLUID NONE SEEN (NONE SEEN); SOURCE, BODY FLUID CRYSTALS LFT KNEE
[2023-02-20 15:45] LABS: SOURCE, BODY FLUID GLUCOSE LFT KNEE
[2023-02-20 16:04] LABS: SOURCE, BODY FLUID URIC ACID LFT KNEE; URIC ACID, BODY FLUID 2.8 MG/DL (NOT ESTABLISHED)
[2023-02-21] MEDS: TAMSULOSIN 0.4 MG CAP PO SCH (05:47)
[2023-02-21] MEDS: LACTOBACILLUS ACIDOPHILUS CAP (BACID) PO SCH ×3 (05:47→17:06)
[2023-02-21] MEDS: FIDAXOMICIN 200 MG TAB (DIFICID) PO SCH ×2 (05:47→20:52)
[2023-02-21] MEDS: ASPIRIN 81MG ENTERIC TABLET PO SCH (05:47)
[2023-02-21] MEDS: allopurinoL 100 MG TAB PO SCH ×2 (05:48→20:52)
[2023-02-21] MEDS: FOLIC ACID 1MG TAB PO SCH (05:48)
[2023-02-21] MEDS: PANTOPRAZOLE 40MG TAB (PROTONIX) PO SCH (05:48)
[2023-02-21] MEDS: ATORVASTATIN 20 MG TAB PO SCH (05:48)
[2023-02-21] MEDS: ACETAMINOPHEN TAB 650MG DOSE (2X325MG) PO SCH ×2 (05:48→20:52)
[2023-02-21] MEDS: CYANOCOBALAMIN 250 MCG TABLET PO SCH (05:48)
[2023-02-21] MEDS: METOPROLOL TART 12.5 MG PER 1/2 TAB PO SCH ×3 (05:50→20:51)
[2023-02-21] MEDS ORDERED: HEPARIN 1,000UNITS/ML 10ML VIAL (FOR RADIOLOGY & DIALYSIS ONLY) XX SCH (06:05)
[2023-02-21] MEDS ORDERED: SODIUM CHLORIDE 0.9% 1000ML IV PRN (06:05)
[2023-02-21] MEDS ORDERED: HEPARIN 1,000UNITS/ML 10ML VIAL (FOR RADIOLOGY & DIALYSIS ONLY) IV PRN (06:05)
[2023-02-21 06:58] LABS: BASO # 0.1 10^3/uL (0.0-0.2); EOS # 0.2 10^3/uL (0.0-0.5); HEMATOCRIT 26.2 % (42.0-52.0); HEMOGLOBIN 8.3 g/dl (13.5-17.5); LYMPH # 0.7 10^3/uL (1.5-5.0); LYMPH % 7.6 % (24.0-44.0); MEAN CORPUSCULAR HGB CONC 31.7 g/dl (32.0-36.5); MEAN CORPUSCULAR VOLUME 107.4 fl (80.0-96.0); MONO % 10.6 % (2.0-8.0); NEUTROPHILS # 7.1 10^3/uL (1.5-8.5); NEUTROPHILS % 78.3 % (36.0-66.0); PLATELET COUNT, AUTOMATED 341 10^3/uL (150-450); RED BLOOD COUNT 2.44 10^6/uL (4.30-6.10); WHITE BLOOD COUNT 9.1 10^3/uL (4.0-10.0)
[2023-02-21 07:22] LABS: VANCOMYCIN RANDOM 23.7 UG/ML
[2023-02-21 07:23] LABS: CALCIUM LEVEL 9.3 MG/DL (8.3-10.6); CREATININE FOR GFR 4.42 MG/DL (0.70-1.30); GLOMERULAR FILTRATION RATE 13.5 (>35); MAGNESIUM LEVEL 1.8 MG/DL (1.8-2.4); POTASSIUM SERUM 4.9 MMOL/L (3.5-5.1)
[2023-02-21] MEDS: PERCOCET 5MG/325MG TAB PO PRN ×2 (09:41→17:06)
[2023-02-21] MEDS: VANCOMYCIN HCL 750 MG, VIAL MATE ADAPTER 1 EACH in D5W 250 ML IV SCH (17:12)
[2023-02-22] MEDS: PERCOCET 5MG/325MG TAB PO PRN ×2 (04:51→16:23)
[2023-02-22 06:00] VITALS: BP 125/61
[2023-02-22 07:17] LABS: BASO # 0.1 10^3/uL (0.0-0.2); EOS # 0.2 10^3/uL (0.0-0.5); EOS % 2.4 % (0.0-3.0); HEMATOCRIT 27.3 % (42.0-52.0); HEMOGLOBIN 8.4 g/dl (13.5-17.5); LYMPH # 0.6 10^3/uL (1.5-5.0); LYMPH % 6.2 % (24.0-44.0); MEAN CORPUSCULAR HEMOGLOBIN 32.9 pg (27.0-33.0); MEAN CORPUSCULAR HGB CONC 30.8 g/dl (32.0-36.5); MEAN CORPUSCULAR VOLUME 107.1 fl (80.0-96.0); MONO # 1.1 10^3/uL (0.0-0.8); MONO % 11.1 % (2.0-8.0); NEUTROPHILS % 78.3 % (36.0-66.0); PLATELET COUNT, AUTOMATED 364 10^3/uL (150-450); RED BLOOD COUNT 2.55 10^6/uL (4.30-6.10); WHITE BLOOD COUNT 10.2 10^3/uL (4.0-10.0)
[2023-02-22 07:39] LABS: BLOOD UREA NITROGEN 18 MG/DL (9-23); CALCIUM LEVEL 8.8 MG/DL (8.3-10.6); CARBON DIOXIDE LEVEL 24 MMOL/L (20-31); CHLORIDE LEVEL 100 MMOL/L (98-107); CREATININE FOR GFR 2.71 MG/DL (0.70-1.30); GLOMERULAR FILTRATION RATE 23.8 (>35); GLUCOSE, FASTING 94 MG/DL (74-106); MAGNESIUM LEVEL 1.7 MG/DL (1.8-2.4); POTASSIUM SERUM 4.4 MMOL/L (3.5-5.1); SODIUM LEVEL 133 MMOL/L (136-145)
[2023-02-22 07:52] LABS: HEPATITIS B SURFACE ANTIGEN NEGATIVE (NEGATIVE)
[2023-02-22 08:17] LABS: VANCOMYCIN RANDOM 26.2 UG/ML
[2023-02-22] MEDS: allopurinoL 100 MG TAB PO SCH ×2 (09:58→20:56)
[2023-02-22] MEDS: TAMSULOSIN 0.4 MG CAP PO SCH (09:58)
[2023-02-22] MEDS: METOPROLOL TART 12.5 MG PER 1/2 TAB PO SCH ×3 (09:58→20:56)
[2023-02-22] MEDS: DIGOXIN 0.0625MG PER 1/2TABLET PO SCH (09:58)
[2023-02-22] MEDS: CYANOCOBALAMIN 250 MCG TABLET PO SCH (09:58)
[2023-02-22] MEDS: PANTOPRAZOLE 40MG TAB (PROTONIX) PO SCH (09:58)
[2023-02-22] MEDS: ATORVASTATIN 20 MG TAB PO SCH (09:58)
[2023-02-22] MEDS: FOLIC ACID 1MG TAB PO SCH (09:58)
[2023-02-22] MEDS: ASPIRIN 81MG ENTERIC TABLET PO SCH (09:58)
[2023-02-22] MEDS: FIDAXOMICIN 200 MG TAB (DIFICID) PO SCH ×2 (09:59→20:56)
[2023-02-22] MEDS: ACETAMINOPHEN TAB 650MG DOSE (2X325MG) PO SCH ×2 (09:59→20:56)
[2023-02-22] MEDS: LACTOBACILLUS ACIDOPHILUS CAP (BACID) PO SCH ×3 (09:59→17:16)
[2023-02-23 06:00] VITALS: BP 129/58
[2023-02-23] MEDS: ASPIRIN 81MG ENTERIC TABLET PO SCH (06:31)
[2023-02-23] MEDS: LACTOBACILLUS ACIDOPHILUS CAP (BACID) PO SCH ×3 (06:32→19:04)
[2023-02-23] MEDS: METOPROLOL TART 12.5 MG PER 1/2 TAB PO SCH ×3 (06:32→21:40)
[2023-02-23] MEDS: FOLIC ACID 1MG TAB PO SCH (06:33)
[2023-02-23] MEDS: PANTOPRAZOLE 40MG TAB (PROTONIX) PO SCH (06:33)
[2023-02-23] MEDS: TAMSULOSIN 0.4 MG CAP PO SCH (06:33)
[2023-02-23] MEDS: allopurinoL 100 MG TAB PO SCH ×2 (06:33→21:40)
[2023-02-23] MEDS ORDERED: SODIUM CHLORIDE 0.9% 1000ML IV PRN (06:35)
[2023-02-23] MEDS ORDERED: HEPARIN 1,000UNITS/ML 10ML VIAL (FOR RADIOLOGY & DIALYSIS ONLY) IV PRN (06:35)
[2023-02-23] MEDS ORDERED: HEPARIN 1,000UNITS/ML 10ML VIAL (FOR RADIOLOGY & DIALYSIS ONLY) XX SCH (06:35)
[2023-02-23] MEDS: CYANOCOBALAMIN 250 MCG TABLET PO SCH (06:41)
[2023-02-23] MEDS: FIDAXOMICIN 200 MG TAB (DIFICID) PO SCH ×2 (06:41→21:40)
[2023-02-23] MEDS: ACETAMINOPHEN TAB 650MG DOSE (2X325MG) PO SCH ×2 (06:41→21:40)
[2023-02-23] MEDS: ATORVASTATIN 20 MG TAB PO SCH (06:41)
[2023-02-23 06:56] LABS: BASO # 0.1 10^3/uL (0.0-0.2); EOS # 0.4 10^3/uL (0.0-0.5); EOS % 3.4 % (0.0-3.0); HEMATOCRIT 26.5 % (42.0-52.0); HEMOGLOBIN 8.4 g/dl (13.5-17.5); LYMPH # 0.8 10^3/uL (1.5-5.0); LYMPH % 7.2 % (24.0-44.0); MEAN CORPUSCULAR HEMOGLOBIN 33.7 pg (27.0-33.0); MEAN CORPUSCULAR HGB CONC 31.7 g/dl (32.0-36.5); MEAN CORPUSCULAR VOLUME 106.4 fl (80.0-96.0); MONO # 1.1 10^3/uL (0.0-0.8); MONO % 10.4 % (2.0-8.0); NEUTROPHILS # 8.4 10^3/uL (1.5-8.5); PLATELET COUNT, AUTOMATED 372 10^3/uL (150-450); RED BLOOD COUNT 2.49 10^6/uL (4.30-6.10); WHITE BLOOD COUNT 10.9 10^3/uL (4.0-10.0)
[2023-02-23 07:28] LABS: PERCENT SATURATION 11.4 % (19.7-50.0)
[2023-02-23 07:33] LABS: ALBUMIN 1.7 G/DL (3.2-5.2); CREATININE FOR GFR 4.04 MG/DL (0.70-1.30); MAGNESIUM LEVEL 1.8 MG/DL (1.8-2.4); PHOSPHORUS LEVEL 3.8 MG/DL (2.4-5.1); POTASSIUM SERUM 4.9 MMOL/L (3.5-5.1)
[2023-02-23] MEDS: DARBEPOETIN 200MCG/0.4ML *DIALYSIS* SYRINGE IV SCH (08:33)
[2023-02-24 05:43] VITALS: BP 129/56
[2023-02-24 06:36] LABS: BASO # 0.1 10^3/uL (0.0-0.2); BASO % 1.2 % (0.0-1.0); EOS # 0.3 10^3/uL (0.0-0.5); EOS % 3.4 % (0.0-3.0); HEMATOCRIT 28.8 % (42.0-52.0); LYMPH # 0.9 10^3/uL (1.5-5.0); LYMPH % 8.6 % (24.0-44.0); MEAN CORPUSCULAR HEMOGLOBIN 33.6 pg (27.0-33.0); MEAN CORPUSCULAR HGB CONC 31.3 g/dl (32.0-36.5); MEAN CORPUSCULAR VOLUME 107.5 fl (80.0-96.0); MONO # 1.2 10^3/uL (0.0-0.8); MONO % 12.3 % (2.0-8.0); NEUTROPHILS # 7.3 10^3/uL (1.5-8.5); NEUTROPHILS % 73.6 % (36.0-66.0); PLATELET COUNT, AUTOMATED 379 10^3/uL (150-450); RED BLOOD COUNT 2.68 10^6/uL (4.30-6.10); WHITE BLOOD COUNT 9.9 10^3/uL (4.0-10.0)
[2023-02-24 06:48] LABS: VANCOMYCIN RANDOM 19.4 UG/ML
[2023-02-24 06:49] LABS: CALCIUM LEVEL 8.9 MG/DL (8.3-10.6); CREATININE FOR GFR 2.82 MG/DL (0.70-1.30); GLOMERULAR FILTRATION RATE 22.7 (>35); MAGNESIUM LEVEL 1.8 MG/DL (1.8-2.4); POTASSIUM SERUM 4.1 MMOL/L (3.5-5.1)
[2023-02-24] MEDS: CYANOCOBALAMIN 250 MCG TABLET PO SCH (09:00)
[2023-02-24] MEDS: FIDAXOMICIN 200 MG TAB (DIFICID) PO SCH ×2 (09:00→20:43)
[2023-02-24] MEDS: TAMSULOSIN 0.4 MG CAP PO SCH (10:10)
[2023-02-24] MEDS: LACTOBACILLUS ACIDOPHILUS CAP (BACID) PO SCH ×3 (10:11→17:53)
[2023-02-24] MEDS: PANTOPRAZOLE 40MG TAB (PROTONIX) PO SCH (10:11)
[2023-02-24] MEDS: DIGOXIN 0.0625MG PER 1/2TABLET PO SCH (10:12)
[2023-02-24] MEDS: METOPROLOL TART 12.5 MG PER 1/2 TAB PO SCH ×3 (10:13→20:44)
[2023-02-24] MEDS: FOLIC ACID 1MG TAB PO SCH (10:14)
[2023-02-24] MEDS: ACETAMINOPHEN TAB 650MG DOSE (2X325MG) PO SCH ×2 (10:14→20:45)
[2023-02-24] MEDS: ATORVASTATIN 20 MG TAB PO SCH (10:14)
[2023-02-24] MEDS: allopurinoL 100 MG TAB PO SCH ×2 (10:14→20:43)
[2023-02-24] MEDS: ASPIRIN 81MG ENTERIC TABLET PO SCH (10:14)
[2023-02-25 06:00] VITALS: BP 124/58
[2023-02-25 06:10] LABS: BASO # 0.1 10^3/uL (0.0-0.2); BASO % 1.2 % (0.0-1.0); EOS # 0.4 10^3/uL (0.0-0.5); EOS % 3.8 % (0.0-3.0); HEMATOCRIT 28.4 % (42.0-52.0); LYMPH % 9.4 % (24.0-44.0); MEAN CORPUSCULAR HEMOGLOBIN 33.6 pg (27.0-33.0); MEAN CORPUSCULAR HGB CONC 31.7 g/dl (32.0-36.5); MONO # 1.3 10^3/uL (0.0-0.8); MONO % 12.6 % (2.0-8.0); NEUTROPHILS # 7.6 10^3/uL (1.5-8.5); NEUTROPHILS % 72.2 % (36.0-66.0); PLATELET COUNT, AUTOMATED 382 10^3/uL (150-450); RED BLOOD COUNT 2.68 10^6/uL (4.30-6.10); WHITE BLOOD COUNT 10.5 10^3/uL (4.0-10.0)
[2023-02-25 06:45] LABS: CALCIUM LEVEL 9.4 MG/DL (8.3-10.6); CREATININE FOR GFR 4.09 MG/DL (0.70-1.30); GLOMERULAR FILTRATION RATE 14.8 (>35); MAGNESIUM LEVEL 1.8 MG/DL (1.8-2.4); POTASSIUM SERUM 4.5 MMOL/L (3.5-5.1)
[2023-02-25] MEDS: ASPIRIN 81MG ENTERIC TABLET PO SCH (09:01)
[2023-02-25] MEDS: FOLIC ACID 1MG TAB PO SCH (09:02)
[2023-02-25] MEDS: allopurinoL 100 MG TAB PO SCH ×2 (09:02→21:00)
[2023-02-25] MEDS: ACETAMINOPHEN TAB 650MG DOSE (2X325MG) PO SCH ×2 (09:02→21:03)
[2023-02-25] MEDS: METOPROLOL TART 12.5 MG PER 1/2 TAB PO SCH ×3 (09:02→21:02)
[2023-02-25] MEDS: TAMSULOSIN 0.4 MG CAP PO SCH (09:02)
[2023-02-25] MEDS: CYANOCOBALAMIN 250 MCG TABLET PO SCH (09:03)
[2023-02-25] MEDS: LACTOBACILLUS ACIDOPHILUS CAP (BACID) PO SCH ×3 (09:03→18:05)
[2023-02-25] MEDS: ATORVASTATIN 20 MG TAB PO SCH (09:03)
[2023-02-25] MEDS: FIDAXOMICIN 200 MG TAB (DIFICID) PO SCH ×2 (09:03→21:03)
[2023-02-25] MEDS: PANTOPRAZOLE 40MG TAB (PROTONIX) PO SCH (09:03)
[2023-02-26 06:00] VITALS: BP 134/64
[2023-02-26] MEDS ORDERED: SODIUM CHLORIDE 0.9% 1000ML IV PRN (06:00)
[2023-02-26] MEDS ORDERED: HEPARIN 1,000UNITS/ML 10ML VIAL (FOR RADIOLOGY & DIALYSIS ONLY) IV PRN (06:00)
[2023-02-26] MEDS ORDERED: HEPARIN 1,000UNITS/ML 10ML VIAL (FOR RADIOLOGY & DIALYSIS ONLY) XX SCH (06:00)
[2023-02-26] MEDS: TAMSULOSIN 0.4 MG CAP PO SCH (06:07)
[2023-02-26] MEDS: ASPIRIN 81MG ENTERIC TABLET PO SCH (06:07)
[2023-02-26] MEDS: CYANOCOBALAMIN 250 MCG TABLET PO SCH (06:08)
[2023-02-26] MEDS: ACETAMINOPHEN TAB 650MG DOSE (2X325MG) PO SCH ×2 (06:08→22:02)
[2023-02-26] MEDS: allopurinoL 100 MG TAB PO SCH ×2 (06:08→22:02)
[2023-02-26] MEDS: PANTOPRAZOLE 40MG TAB (PROTONIX) PO SCH (06:08)
[2023-02-26] MEDS: LACTOBACILLUS ACIDOPHILUS CAP (BACID) PO SCH ×3 (06:08→17:41)
[2023-02-26] MEDS: FIDAXOMICIN 200 MG TAB (DIFICID) PO SCH ×2 (06:08→22:01)
[2023-02-26] MEDS: ATORVASTATIN 20 MG TAB PO SCH (06:08)
[2023-02-26] MEDS: FOLIC ACID 1MG TAB PO SCH (06:08)
[2023-02-26] MEDS: METOPROLOL TART 12.5 MG PER 1/2 TAB PO SCH ×3 (06:09→22:03)
[2023-02-26] MEDS ORDERED: VARIBAR PUDDING 40% w/v 230ML TUBE As Ordered ONE (14:33)
[2023-02-26] MEDS ORDERED: VARIBAR NECTAR 40% w/v 240ML SUSP BTL As Ordered ONE ×2 (14:33→15:30)
[2023-02-26] MEDS ORDERED: E-Z-PAQUE 96% w/w SUSP 176GM BTL As Ordered ONE (14:33)
[2023-02-26] MEDS: VANCOMYCIN HCL 750 MG, VIAL MATE ADAPTER 1 EACH in D5W 250 ML IV SCH (15:43)
[2023-02-27 05:26] VITALS: BP 121/51
[2023-02-27] MEDS: ASPIRIN 81MG ENTERIC TABLET PO SCH (08:19)
[2023-02-27] MEDS: ATORVASTATIN 20 MG TAB PO SCH (08:19)
[2023-02-27] MEDS: LACTOBACILLUS ACIDOPHILUS CAP (BACID) PO SCH ×3 (08:20→17:32)
[2023-02-27] MEDS: CYANOCOBALAMIN 250 MCG TABLET PO SCH (08:20)
[2023-02-27] MEDS: TAMSULOSIN 0.4 MG CAP PO SCH (08:20)
[2023-02-27] MEDS: FOLIC ACID 1MG TAB PO SCH (08:20)
[2023-02-27] MEDS: PANTOPRAZOLE 40MG TAB (PROTONIX) PO SCH (08:20)
[2023-02-27] MEDS: allopurinoL 100 MG TAB PO SCH ×2 (08:20→21:48)
[2023-02-27] MEDS: ACETAMINOPHEN TAB 650MG DOSE (2X325MG) PO SCH ×2 (08:20→21:47)
[2023-02-27] MEDS: DIGOXIN 0.0625MG PER 1/2TABLET PO SCH (08:22)
[2023-02-27] MEDS: METOPROLOL TART 12.5 MG PER 1/2 TAB PO SCH ×3 (08:23→21:46)
[2023-02-27 21:06] VITALS: BP 113/68
[2023-02-27 21:43] VITALS: BP 122/63
[2023-02-28 06:00] VITALS: BP 125/64
[2023-02-28] MEDS ORDERED: HEPARIN 1,000UNITS/ML 10ML VIAL (FOR RADIOLOGY & DIALYSIS ONLY) XX SCH (06:00)
[2023-02-28] MEDS ORDERED: SODIUM CHLORIDE 0.9% 1000ML IV PRN (06:00)
[2023-02-28] MEDS ORDERED: HEPARIN 1,000UNITS/ML 10ML VIAL (FOR RADIOLOGY & DIALYSIS ONLY) IV PRN (06:00)
[2023-02-28] MEDS: ASPIRIN 81MG ENTERIC TABLET PO SCH (08:41)
[2023-02-28] MEDS: TAMSULOSIN 0.4 MG CAP PO SCH (08:41)
[2023-02-28] MEDS: LACTOBACILLUS ACIDOPHILUS CAP (BACID) PO SCH ×3 (08:41→17:56)
[2023-02-28] MEDS: ATORVASTATIN 20 MG TAB PO SCH (08:41)
[2023-02-28] MEDS: PANTOPRAZOLE 40MG TAB (PROTONIX) PO SCH (08:41)
[2023-02-28] MEDS: FOLIC ACID 1MG TAB PO SCH (08:41)
[2023-02-28] MEDS: allopurinoL 100 MG TAB PO SCH ×2 (08:41→21:48)
[2023-02-28] MEDS: CYANOCOBALAMIN 250 MCG TABLET PO SCH (08:41)
[2023-02-28] MEDS: ACETAMINOPHEN TAB 650MG DOSE (2X325MG) PO SCH ×2 (08:41→21:48)
[2023-02-28] MEDS: METOPROLOL TART 12.5 MG PER 1/2 TAB PO SCH ×3 (08:42→21:50)
[2023-03-01] MEDS: PERCOCET 5MG/325MG TAB PO PRN (03:15)
[2023-03-01 06:13] LABS: BASO # 0.1 10^3/uL (0.0-0.2); BASO % 0.8 % (0.0-1.0); EOS # 0.2 10^3/uL (0.0-0.5); EOS % 1.9 % (0.0-3.0); HEMATOCRIT 26.8 % (42.0-52.0); HEMOGLOBIN 8.3 g/dl (13.5-17.5); LYMPH # 0.8 10^3/uL (1.5-5.0); LYMPH % 9.9 % (24.0-44.0); MEAN CORPUSCULAR HEMOGLOBIN 32.7 pg (27.0-33.0); MEAN CORPUSCULAR VOLUME 105.5 fl (80.0-96.0); MONO # 1.3 10^3/uL (0.0-0.8); MONO % 15.5 % (2.0-8.0); NEUTROPHILS # 5.9 10^3/uL (1.5-8.5); NEUTROPHILS % 70.8 % (36.0-66.0); PLATELET COUNT, AUTOMATED 314 10^3/uL (150-450); RED BLOOD COUNT 2.54 10^6/uL (4.30-6.10); WHITE BLOOD COUNT 8.4 10^3/uL (4.0-10.0)
[2023-03-01 06:51] LABS: ALBUMIN 1.7 G/DL (3.2-5.2); ALKALINE PHOSPHATASE 150 U/L (46-116); ALT/SGPT < 9 U/L (7.0-40); AST/SGOT 11 U/L (<34); BILIRUBIN,TOTAL 0.5 MG/DL (0.3-1.2); BLOOD UREA NITROGEN 17 MG/DL (9-23); CALCIUM LEVEL 8.7 MG/DL (8.3-10.6); CARBON DIOXIDE LEVEL 29 MMOL/L (20-31); CHLORIDE LEVEL 98 MMOL/L (98-107); GLOMERULAR FILTRATION RATE 23.9 (>35); GLUCOSE, FASTING 85 MG/DL (74-106); POTASSIUM SERUM 3.4 MMOL/L (3.5-5.1); SODIUM LEVEL 135 MMOL/L (136-145); TOTAL PROTEIN 5.3 G/DL (5.7-8.2)
[2023-03-01] MEDS ORDERED: POTASSIUM CHLORIDE 10MEQ SR TABLET PO ONE (07:15)
[2023-03-01] MEDS: LACTOBACILLUS ACIDOPHILUS CAP (BACID) PO SCH ×3 (08:34→17:00)
[2023-03-01] MEDS: DIGOXIN 0.0625MG PER 1/2TABLET PO SCH (08:35)
[2023-03-01] MEDS: ASPIRIN 81MG ENTERIC TABLET PO SCH (08:35)
[2023-03-01] MEDS: PANTOPRAZOLE 40MG TAB (PROTONIX) PO SCH (08:35)
[2023-03-01] MEDS: METOPROLOL TART 12.5 MG PER 1/2 TAB PO SCH ×3 (08:36→20:16)
[2023-03-01] MEDS: allopurinoL 100 MG TAB PO SCH ×2 (08:36→20:14)
[2023-03-01] MEDS: CYANOCOBALAMIN 250 MCG TABLET PO SCH (08:36)
[2023-03-01] MEDS: ATORVASTATIN 20 MG TAB PO SCH (08:36)
[2023-03-01] MEDS: FOLIC ACID 1MG TAB PO SCH (08:36)
[2023-03-01] MEDS: TAMSULOSIN 0.4 MG CAP PO SCH (08:36)
[2023-03-01] MEDS: ACETAMINOPHEN TAB 650MG DOSE (2X325MG) PO SCH ×2 (08:37→20:14)
[2023-03-01] MEDS ORDERED: ISOVUE-370 76% 100ML VIAL As Ordered ONE (17:37)
[2023-03-02] MEDS: CYANOCOBALAMIN 250 MCG TABLET PO SCH (05:28)
[2023-03-02] MEDS: allopurinoL 100 MG TAB PO SCH ×2 (05:29→21:02)
[2023-03-02] MEDS: ATORVASTATIN 20 MG TAB PO SCH (05:29)
[2023-03-02] MEDS: PANTOPRAZOLE 40MG TAB (PROTONIX) PO SCH (05:29)
[2023-03-02] MEDS: FOLIC ACID 1MG TAB PO SCH (05:29)
[2023-03-02] MEDS: TAMSULOSIN 0.4 MG CAP PO SCH (05:29)
[2023-03-02] MEDS: LACTOBACILLUS ACIDOPHILUS CAP (BACID) PO SCH ×3 (05:29→17:00)
[2023-03-02] MEDS: ASPIRIN 81MG ENTERIC TABLET PO SCH (05:29)
[2023-03-02] MEDS: ACETAMINOPHEN TAB 650MG DOSE (2X325MG) PO SCH ×2 (05:30→21:01)
[2023-03-02] MEDS: METOPROLOL TART 12.5 MG PER 1/2 TAB PO SCH ×3 (05:31→21:01)
[2023-03-02 07:13] LABS: ALBUMIN 1.8 G/DL (3.2-5.2); ALKALINE PHOSPHATASE 152 U/L (46-116); ALT/SGPT < 9 U/L (7.0-40); AST/SGOT 12 U/L (<34); BILIRUBIN,TOTAL 0.3 MG/DL (0.3-1.2); BLOOD UREA NITROGEN 27 MG/DL (9-23); CALCIUM LEVEL 9.1 MG/DL (8.3-10.6); CARBON DIOXIDE LEVEL 28 MMOL/L (20-31); CHLORIDE LEVEL 97 MMOL/L (98-107); CREATININE FOR GFR 3.92 MG/DL (0.70-1.30); GLOMERULAR FILTRATION RATE 15.5 (>35); GLUCOSE, FASTING 78 MG/DL (74-106); MAGNESIUM LEVEL 1.8 MG/DL (1.8-2.4); SODIUM LEVEL 134 MMOL/L (136-145); TOTAL PROTEIN 5.6 G/DL (5.7-8.2)
[2023-03-02] MEDS ORDERED: HEPARIN 1,000UNITS/ML 10ML VIAL (FOR RADIOLOGY & DIALYSIS ONLY) IV PRN (08:25)
[2023-03-02] MEDS ORDERED: LIDOCAINE 1% SDV 5ML VIAL SC PRN (08:25)
[2023-03-02] MEDS ORDERED: HEPARIN 1,000UNITS/ML 10ML VIAL (FOR RADIOLOGY & DIALYSIS ONLY) XX SCH (08:25)
[2023-03-02] MEDS ORDERED: SODIUM CHLORIDE 0.9% 1000ML IV PRN (08:25)
[2023-03-02] MEDS: DARBEPOETIN 200MCG/0.4ML *DIALYSIS* SYRINGE IV SCH (10:38)
[2023-03-03 06:00] VITALS: BP 120/66
[2023-03-03] MEDS: allopurinoL 100 MG TAB PO SCH ×2 (08:31→20:47)
[2023-03-03] MEDS: LACTOBACILLUS ACIDOPHILUS CAP (BACID) PO SCH ×3 (08:31→17:48)
[2023-03-03] MEDS: TAMSULOSIN 0.4 MG CAP PO SCH (08:31)
[2023-03-03] MEDS: CYANOCOBALAMIN 250 MCG TABLET PO SCH (08:31)
[2023-03-03] MEDS: FOLIC ACID 1MG TAB PO SCH (08:31)
[2023-03-03] MEDS: ASPIRIN 81MG ENTERIC TABLET PO SCH (08:31)
[2023-03-03] MEDS: DIGOXIN 0.0625MG PER 1/2TABLET PO SCH (08:32)
[2023-03-03] MEDS: PANTOPRAZOLE 40MG TAB (PROTONIX) PO SCH (08:32)
[2023-03-03] MEDS: ATORVASTATIN 20 MG TAB PO SCH (08:32)
[2023-03-03] MEDS: ACETAMINOPHEN TAB 650MG DOSE (2X325MG) PO SCH ×2 (08:32→20:47)
[2023-03-03] MEDS: METOPROLOL TART 12.5 MG PER 1/2 TAB PO SCH ×3 (08:33→20:47)
[2023-03-03 09:29] LABS: BASO # 0.1 10^3/uL (0.0-0.2); BASO % 1.1 % (0.0-1.0); EOS # 0.4 10^3/uL (0.0-0.5); EOS % 3.3 % (0.0-3.0); HEMATOCRIT 27.7 % (42.0-52.0); HEMOGLOBIN 8.4 g/dl (13.5-17.5); LYMPH # 0.9 10^3/uL (1.5-5.0); LYMPH % 8.9 % (24.0-44.0); MEAN CORPUSCULAR HEMOGLOBIN 32.1 pg (27.0-33.0); MEAN CORPUSCULAR HGB CONC 30.3 g/dl (32.0-36.5); MEAN CORPUSCULAR VOLUME 105.7 fl (80.0-96.0); MONO # 0.9 10^3/uL (0.0-0.8); MONO % 8.6 % (2.0-8.0); NEUTROPHILS % 76.8 % (36.0-66.0); PLATELET COUNT, AUTOMATED 288 10^3/uL (150-450); RED BLOOD COUNT 2.62 10^6/uL (4.30-6.10); WHITE BLOOD COUNT 10.5 10^3/uL (4.0-10.0)
[2023-03-03 19:57] VITALS: BP 128/63
[2023-03-04] MEDS: PERCOCET 5MG/325MG TAB PO PRN ×2 (02:20→08:17)
[2023-03-04 06:00] VITALS: BP 123/65
[2023-03-04] MEDS: TAMSULOSIN 0.4 MG CAP PO SCH (08:15)
[2023-03-04] MEDS: LACTOBACILLUS ACIDOPHILUS CAP (BACID) PO SCH ×2 (08:16→12:47)
[2023-03-04] MEDS: ASPIRIN 81MG ENTERIC TABLET PO SCH (08:16)
[2023-03-04 08:18] VITALS: BP 125/66
[2023-03-04] MEDS: ACETAMINOPHEN TAB 650MG DOSE (2X325MG) PO SCH ×2 (08:18→21:25)
[2023-03-04] MEDS: PANTOPRAZOLE 40MG TAB (PROTONIX) PO SCH (08:18)
[2023-03-04] MEDS: ATORVASTATIN 20 MG TAB PO SCH (08:18)
[2023-03-04] MEDS: CYANOCOBALAMIN 250 MCG TABLET PO SCH (08:18)
[2023-03-04] MEDS: FOLIC ACID 1MG TAB PO SCH (08:18)
[2023-03-04] MEDS: allopurinoL 100 MG TAB PO SCH (08:18)
[2023-03-04] MEDS: METOPROLOL TART 12.5 MG PER 1/2 TAB PO SCH (08:18)
[2023-03-04] MEDS ORDERED: LORazepam 1 MG TAB PO PRN (13:50)
[2023-03-04] MEDS ORDERED: MORPHINE 10MG/0.5ML ORAL CONCENTRATE SOLUTION U/D SL PRN (13:50)
[2023-03-04] MEDS ORDERED: SCOPOLAMINE 1MG TRANSDERMAL PATCH TOP PRN (13:50)
[2023-03-05] MEDS: PERCOCET 5MG/325MG TAB PO PRN ×2 (05:51→16:56)
[2023-03-05 06:00] VITALS: BP 133/66
[2023-03-05] MEDS: ACETAMINOPHEN TAB 650MG DOSE (2X325MG) PO SCH ×2 (07:27→20:55)
[2023-03-06] MEDS: DIGOXIN 0.0625MG PER 1/2TABLET PO SCH (08:35)
[2023-03-06] MEDS: ACETAMINOPHEN TAB 650MG DOSE (2X325MG) PO SCH ×2 (08:36→20:30)
[2023-03-06] MEDS: PERCOCET 5MG/325MG TAB PO PRN (16:13)
[2023-03-07] MEDS: ACETAMINOPHEN TAB 650MG DOSE (2X325MG) PO SCH ×2 (10:06→21:46)
[2023-03-07] MEDS: PERCOCET 5MG/325MG TAB PO PRN (16:48)
[2023-03-08] MEDS ORDERED: MORP1SOL5 PO (08:56)
[2023-03-08] MEDS ORDERED: ATIV1TAB10 PO (08:56)
[2023-03-08] MEDS ORDERED: HYOS125TA PO (08:56)
[2023-03-08] MEDS: ACETAMINOPHEN TAB 650MG DOSE (2X325MG) PO SCH (09:42)
[2023-03-08] MEDS: DIGOXIN 0.0625MG PER 1/2TABLET PO SCH (09:43)
== END 2023-03-08 12:30 | disposition hospice, home (50) | DRG 314 ==
LOC: EDBD 09:11 → M ED 09:11 → M ED INP 12:29 → M PCU 18:20 → M MS5PR 01-26 17:15 → M PCU 02-07 17:28 → M MSPAV 02-14 11:04
PROVIDERS: ADMIT Internal Medicine; ATTEND Internal Medicine
PROC: 30233K1 Transfusion of Nonautologous Frozen Plasma into Peripheral Vein, Percutaneous Approach (ICD-10-PCS; 2023-01-23)
PROC: 05HY33Z Insertion of Infusion Device into Upper Vein, Percutaneous Approach (ICD-10-PCS; 2023-01-26)
PROC: 0R9J3ZZ Drainage of Right Shoulder Joint, Percutaneous Approach (ICD-10-PCS; 2023-01-26)
PROC: 0R9K3ZZ Drainage of Left Shoulder Joint, Percutaneous Approach (ICD-10-PCS; 2023-01-26)
PROC: 0JPV0XZ Removal of Tunneled Vascular Access Device from Upper Extremity Subcutaneous Tissue and Fascia, Open Approach (ICD-10-PCS; principal; 2023-01-26 13:00)
PROC: 05HM33Z Insertion of Infusion Device into Right Internal Jugular Vein, Percutaneous Approach (ICD-10-PCS; 2023-01-30)
PROC: B246ZZ4 Ultrasonography of Right and Left Heart, Transesophageal (ICD-10-PCS; 2023-01-30)
PROC: 0S9D3ZZ Drainage of Left Knee Joint, Percutaneous Approach (ICD-10-PCS; 2023-02-03)
PROC: 0S9D3ZZ Drainage of Left Knee Joint, Percutaneous Approach (ICD-10-PCS; 2023-02-20)
PROC: 5A1D70Z Performance of Urinary Filtration, Intermittent, Less than 6 Hours Per Day (ICD-10-PCS; 2023-02-23)
DX: T82.7XXA Infection and inflammatory reaction due to other cardiac and vascular devices, implants and grafts, initial encounter (principal); A40.9 Streptococcal sepsis, unspecified; N18.6 End stage renal disease; E87.20 Acidosis, unspecified; I13.2 Hypertensive heart and chronic kidney disease with heart failure and with stage 5 chronic kidney disease, or end stage renal disease; I50.42 Chronic combined systolic (congestive) and diastolic (congestive) heart failure; E87.1 Hypo-osmolality and hyponatremia; I5A Non-ischemic myocardial injury (non-traumatic); I48.20 Chronic atrial fibrillation, unspecified; M00.9 Pyogenic arthritis, unspecified; A04.72 Enterocolitis due to Clostridium difficile, not specified as recurrent; I73.9 Peripheral vascular disease, unspecified; K21.9 Gastro-esophageal reflux disease without esophagitis; Z99.2 Dependence on renal dialysis; I25.10 Atherosclerotic heart disease of native coronary artery without angina pectoris; M75.101 Unspecified rotator cuff tear or rupture of right shoulder, not specified as traumatic; M10.9 Gout, unspecified; Z98.41 Cataract extraction status, right eye; Z96.642 Presence of left artificial hip joint; Z85.828 Personal history of other malignant neoplasm of skin; D53.9 Nutritional anemia, unspecified; Z79.899 Other long term (current) drug therapy; Z79.82 Long term (current) use of aspirin; Z79.01 Long term (current) use of anticoagulants; E78.5 Hyperlipidemia, unspecified; M19.90 Unspecified osteoarthritis, unspecified site; Z98.42 Cataract extraction status, left eye; M25.411 Effusion, right shoulder; M25.412 Effusion, left shoulder; M25.462 Effusion, left knee; Y83.1 Surgical operation with implant of artificial internal device as the cause of abnormal reaction of the patient, or of later complication, without mention of misadventure at the time of the procedure